=== PATIENT | female | born 1955 | race Caucasian/White ===

== ENCOUNTER 2019-08-05 07:36 | Inpatient (IN) ==
--- NOTE | 2019-06-16 16:24 | PAT Medication Instructions ---
Medication Instructions Date of Service June 16, 2019 Home Medications aspirin 325 mg PO QAM carvedilol [Coreg] 6.25 mg PO BID ibuprofen 1,200 mg PO Q6H PRN levothyroxine 75 mcg PO QAM losartan 100 mg PO QAM sertraline 50 mg PO QPM simvastatin 20 mg PO PM tramadol 50 mg PO TID PRN ASK your surgeon for instructions ibuprofen 1,200 mg PO Q6H PRN ASK your prescriber and surgeon aspirin 325 mg PO QAM DO NOT take the morning of surgery losartan 100 mg PO QAM Take morning of surgery With a small sip of water, OTHERWISE NOTHING TO EAT OR DRINK AFTER MIDNIGHT: carvedilol [Coreg] 6.25 mg PO BID levothyroxine 75 mcg PO QAM tramadol 50 mg PO TID PRN (if needed, may be taken up to four hours before surgery) Take evening before surgery carvedilol [Coreg] 6.25 mg PO BID sertraline 50 mg PO QPM simvastatin 20 mg PO PM tramadol 50 mg PO TID PRN (if needed) Other Notes If you have any questions please call us at [phone] or [phone] or [phone] or [phone]
--- NOTE | 2019-06-17 14:01 | Anesthesiology Consultation ---
Date of Service June 17, 2019 Assessment & Plan (1) Encounter for pre-operative examination: -Note to cardiology re: optimization and abn EKG -- cardio arranged clearance and is ordering stress test to be done prior to surgery. Chart Review Chart Review: Acceptable Risk for Surgery (pending cardiology clearance/stress test) and Patient seen in Pre Admission Testing Teaching & Discussion Instructed NPO after midnight before surgery, except medications with 15 cc of water. Medication instructions provided according to the PAT guidelines. History Surgery Operation Date: 08/05/19 07:45 Proposed Procedures p L1-S1 Decompression, T11 Pelvis Fusion with Iliac Bolts Spinal Cord Monitoring - Viet Cooper, DO Height/Weight Height: 5 ft 7 in Weight: 89.7 kg Allergies Allergy/AdvReac Type Severity Reaction Status Date / Time amoxicillin Allergy Unknown Hives Verified 06/09/19 08:56 Medications Home Medications Medication Instructions Recorded Confirmed Last Taken aspirin 325 mg PO QAM 06/09/19 06/09/19 Unknown carvedilol [Coreg] 6.25 mg PO BID 06/09/19 06/09/19 Unknown ibuprofen 1,200 mg PO Q6H PRN 06/09/19 06/09/19 Unknown levothyroxine 75 mcg PO QAM 06/09/19 06/09/19 Unknown losartan 100 mg PO QAM 06/09/19 06/09/19 Unknown sertraline 50 mg PO QPM 06/09/19 06/09/19 Unknown simvastatin 20 mg PO PM 06/09/19 06/09/19 Unknown tramadol 50 mg PO TID PRN 06/09/19 06/09/19 Unknown Past Medical History Medical History Arthritis CAD (coronary artery disease) h/o 3 cardiac caths. Stents placed ~'s, and ~2008/2009 Carotid artery stenosis 50-69% stenosis B/L per 11/19/18 duplex Carpal tunnel syndrome on both sides Hyperlipidemia Hypertension Hypothyroidism Spinal stenosis Exercise / Class Metabolic Activity III < 4 Walking/Shop/Light housework (Denies CP or SOB with 1 FOS but does not do/limited mobility 2/2 back pain/LE weakness) Past Family History Family History Aunt FHx: breast cancer Other FHx: heart disease Past Surgical History Surgical History H/O heart artery stent History of colonoscopy Hx of cardiac cath X3; LAST CATH 5 YR AGO [place]; STENTS DONE ABOUT 10 YR AGO. [facility] Hx of meniscectomy of right knee X2 Past Anesthesia History No Hx of Anesthesia Complications and No Family Hx of Anesthesia Complications History of PONV No Hx of PONV and No Hx of Motion Sickness Social History Smoking Status: Current every day smoker tobacco type: cigarettes Smoking cigarettes per day: Attempting to quit, smoking ~1 pack per month Do You Dip or Chew Tobacco: No Hx Alcohol Use: No Hx Substance Use: No Review of Systems Pt denies any recent chest pain, shortness of breath, palpitations, cough, fever or URI. Physical Exam Vital Signs BP: 111/60 P: 67bpm SPO2: 98% RA T: 98.6 F R: 16 ENMT Mouth: + dentures and + edentulous Thyromental Distance: > or= 3.5 Finger Breadths (4) Mallampati Class: II Neck + thick neck; neck extension not limited Respiratory normal respiratory effort Auscultation: lungs clear to auscultation bilaterally Cardiovascular Rate/Rhythm: regular rate and regular rhythm Heart Sounds: no murmur Vessels: + carotid bruit (R side) Extremities: no edema Testing Laboratory Results 06/17/19 14:11 06/17/19 14:11 PT 10.5 Seconds (9.0-12.0) 06/17/19 14:11 INR 1.0 (0.9-1.1) 06/17/19 14:11 APTT 28.8 Seconds (21.0-31.0) 06/17/19 14:11 Urine Color Dark Yellow 06/17/19 14:11 Urine Appearance Turbid (Clear) A 06/17/19 14:11 Urine pH 5.0 (4.5-7.5) 06/17/19 14:11 Ur Specific [place] 1.032 (1.000-1.030) H 06/17/19 14:11 Urine Protein Negative (Negative) 06/17/19 14:11 Urine Glucose (UA) Negative (Negative) 06/17/19 14:11 Urine Ketones Negative (Negative) 06/17/19 14:11 Urine Nitrite Negative (Negative) 06/17/19 14:11 Ur Leukocyte Esterase 1+ (Negative) H 06/17/19 14:11 Urine WBC (Auto) 5-10 /hpf (0-5) H 06/17/19 14:11 Urine RBC (Auto) 0-4 /hpf (0-4) 06/17/19 14:11 U Hyaline Cast (Auto) 5-10 /lpf (0-5) H 06/17/19 14:11 U Epithel Cells (Auto) >30 /lpf (0-5) H 06/17/19 14:11 Urine Bacteria (Auto) 1+ (Negative) H 06/17/19 14:11 Blood Type O Positive 06/17/19 14:11 Antibody Screen POSITIVE A 06/17/19 14:11 06/17/19 14:11 Urine Culture - Final Urine,Clean Catch More than three types of organisms present, all moderate counts mixed probable skin kendra. No further identifications or sensitivities to follow. *surgeon's office flagged re: +UA (culture is pending) Electrocardiogram Date: 06/17/19 Findings: + NSR @ (61) Nonspecific T wave abnormality. Chest X-Ray Date: 06/17/19 Findings: + NAD Other Testing Carotid Duplex 11/19/18 50-69% stenosis in B/L carotid arteries.
--- NOTE | 2019-06-17 14:34 | XRay Report ---
XR chest Pre-admission PA/Lat HISTORY: Preop. COMPARISON: None. FINDINGS: The lungs are clear. Cardiac silhouette is normal in size. No pleural effusions. No pneumot horax. S-shaped scoliosis of the thoracolumbar spine. IMPRESSION: No acute process. ACT 112: Negative or not required by law. Electronically signed by: Bryson Jj M.D. 06/17/2019 2:33 PM
[2019-06-17 15:57] LABS: Basophils # (auto) 0.01 K/uL (0-0.2); Basophils % (auto) 0.2 %; Eosinophils # (auto) 0.05 K/uL (0-0.5); Eosinophils % (auto) 0.9 %; Hematocrit (blood only) 40.3 % (37-47); Hemoglobin 13.5 g/dL (12.0-16.0); Immature Granulocytes # (auto) 0.01 K/uL (0.00-0.02); Immature Granulocytes % (auto) 0.2 %; Lymphocytes # (auto) 1.52 K/uL (1.2-3.4); Lymphocytes % (auto) 26.5 %; Mean Corpuscular Hemoglobin 31.3 pg (25-34); Mean Corpuscular Hgb Conc 33.5 g/dL (32-36); Mean Corpuscular Volume 93.3 fL (80-100); Mean Platelet Volume 9.8 fL (7.4-10.4); Monocytes # (auto) 0.45 K/uL (0.11-0.59); Monocytes % (auto) 7.9 %; Neutrophils # (auto) 3.69 K/uL (1.4-6.5); Neutrophils % (auto) 64.3 %; Platelet Count 214 K/uL (130-400); RDW Coefficient of Variation 13.1 % (11.5-14.5); RDW Standard Deviation 44.9 fL (36.4-46.3); Red Blood Count 4.32 M/uL (4.2-5.4); White Blood Count 5.73 K/uL (4.8-10.8)
[2019-06-17 15:59] LABS: Appearance Urine Turbid (Clear); Bacteria Urine Automated 1+ (Negative); Blood Urine Negative (Negative); Color Urine Dark Yellow; Epithelial Cell Urine Auto >30 /lpf (0-5); Glucose Urine UA Negative (Negative); Ketones Urine Negative (Negative); Leukocyte Esterase Urine 1+ (Negative); Nitrite Urine Negative (Negative); Protein Urine Negative (Negative); Specific Gravity Urine 1.032 (1.000-1.030); Urobilinogen Urine Negative (Negative)
[2019-06-17 16:05] LABS: Bilirubin Urine Negative (Negative); Ictotest Urine Negative (Negative)
[2019-06-17 16:11] LABS: Partial Thromboplastin Ratio 1.1; Partial Thromboplastin Time 28.8 Seconds (21.0-31.0); Prothrombin Time 10.5 Seconds (9.0-12.0)
[2019-06-17 16:12] LABS: RBC Urine Automated 0-4 /hpf (0-4)
[2019-06-17 16:13] LABS: Calcium Oxalate Crystals Urine Present (None Prsent)
--- NOTE | 2019-06-17 16:14 | Electrocardiogram Report ---
Test Reason : Blood Pressure : / mmHG Vent. Rate : 061 BPM Atrial Rate : 061 BPM P-R Int : 138 ms QRS Dur : 092 ms QT Int : 410 ms P-R-T Axes : 058 052 -18 degrees QTc Int : 412 ms Normal sinus rhythm Nonspecific T wave abnormality Abnormal ECG No previous ECGs available Confirmed by Diogenes John ([id number]) on 06/17/2019 4:14:24 PM Referred By: Viet Cooper Confirmed By:Diogenes John
[2019-06-17 16:22] LABS: BUN Creatinine Ratio 27.8 (10-20); Calcium 9.2 mg/dl (8.5-10.1); Creatinine Clr Calc Pharmacy 74.3 ml/min; Est GFR (African American) 80.5; Est GFR (Non-African American) 69.4; Potassium 4.1 mmol/L (3.5-5.1)
[~2019-08-05 07:36] MED LIST: ALBUMIN HUMAN 5% 12.5 GM/250 ML VIAL IV ONE; CEFAZOLIN 2000MG 2,000 MG/15 ML SYR IV SCH; CLINDAMYCIN 600 MG/54 ML BAG IV SCH; GABAPENTIN 600 MG DOSE PO SCH; LR 15ML/HR IV SCH
[2019-08-05] MEDS ORDERED: GLYCOPYRROLATE 0.2 MG/ML VIAL ONE (08:12)
[2019-08-05] MEDS ORDERED: MIDAZOLAM HCL 1 MG/ML 2ML VIAL ONE (08:12)
[2019-08-05] MEDS ORDERED: DEXAMETHASONE SOD INJ 4 MG/ML VIAL ONE (08:12)
[2019-08-05] MEDS ORDERED: LIDOCAINE HCL 2% 2 ML VIAL/AMP(20MG/ML) INFIL ONE ×2 (08:12→08:28)
[2019-08-05] MEDS ORDERED: NEOSTIGMINE METHYLSULFATE 1 MG/ML 10ML VIAL ONE (08:12)
[2019-08-05] MEDS ORDERED: PROPOFOL IV EMULSION 10 MG/ML 20 ML VIAL IV ONE (08:12)
[2019-08-05] MEDS ORDERED: fentaNYL citrate 100 MCG/2 ML VIAL ONE ×2 (08:12)
[2019-08-05] MEDS ORDERED: ONDANSETRON INJ 2 MG/ML 2 ML VIAL ONE ×2 (08:12→12:55)
[2019-08-05] MEDS ORDERED: ONDANSETRON INJ 2 MG/ML 2 ML VIAL IV PRN ×2 (08:45→15:00)
[2019-08-05] MEDS ORDERED: fentaNYL citrate 100 MCG/2 ML VIAL IV PRN (08:45)
[2019-08-05] MEDS ORDERED: ePHEDrine sulfate 50 MG/ML AMP IV PRN (08:45)
[2019-08-05] MEDS ORDERED: ATROPINE SULFATE 0.1 MG/ML 10ML SYR IV PRN (08:45)
[2019-08-05] MEDS ORDERED: HYDROmorphone INJ 1 MG/ML SYRINGE IV PRN ×2 (08:45→15:00)
--- NOTE | 2019-08-05 09:28 | History & Physical Bridge Note ---
Date of Service August 05, 2019 History & Physical Bridge Note I have examined the patient, reviewed the History & Physical and in the interval since the performance of the History & Physical I have noted the following changes of clinical significance: no changes noted
--- NOTE | 2019-08-05 09:29 | History & Physical Report ---
Date of Service August 05, 2019 Assessment & Plan (1) Neurogenic claudication due to lumbar spinal stenosis: L1-S1 decompression, T11 to pelvis fusion with iliac bolts Present on Admission?: Yes History of Present Illness Chief Complaint: Back and leg pain Primary Care Provider: Ko Hunter This is a 63-year-old female presents with chronic persistent back and leg pain. From extensive course of nonoperative care she is here for surgical intervention. Allergies Allergy/AdvReac Type Severity Reaction Status Date / Time amoxicillin Allergy Unknown Hives Verified 08/05/19 07:55 Home Medications Home Medications Medication Instructions Recorded Confirmed Type aspirin 325 mg PO QAM 06/09/19 08/05/19 History carvedilol [Coreg] 6.25 mg PO BID 06/09/19 08/05/19 History ibuprofen 1,200 mg PO Q6H PRN 06/09/19 08/05/19 History levothyroxine 75 mcg PO QAM 06/09/19 08/05/19 History losartan 100 mg PO QAM 06/09/19 08/05/19 History sertraline 50 mg PO QPM 06/09/19 08/05/19 History simvastatin 20 mg PO PM 06/09/19 08/05/19 History tramadol 50 mg PO TID PRN 06/09/19 08/05/19 History Past Med/Surg History Medical History Arthritis CAD (coronary artery disease) h/o 3 cardiac caths. Stents placed ~'s, and ~2008/2009 Carotid artery stenosis 50-69% stenosis B/L per 11/19/18 duplex Carpal tunnel syndrome on both sides Hyperlipidemia Hypertension Hypothyroidism Spinal stenosis Surgical History H/O heart artery stent History of colonoscopy Hx of cardiac cath X3; LAST CATH 5 YR AGO [place]; STENTS DONE ABOUT 10 YR AGO. [facility] Hx of meniscectomy of right knee X2 Family History Aunt FHx: breast cancer Other FHx: heart disease Social History Preferred Language: Irish Communication Ability: Effective Beliefs That Will Affect Care: None Current Living Situation: Significant Other Feels Safe at Home: Yes Safety Concerns: Feels Safe At This Time Smoking Status: Current every day smoker Tobacco Type: cigarettes ; Cigarettes Per Day: Attempting to quit, smoking ~1 pack per month ; Do You Dip or Chew Tobacco: No ; Second Hand Exposure: No ; Hx Alcohol Use: No Hx Substance Use: No Physical Exam Physical Exam: Patient is alert and oriented neurologically intact. Results & Data Vital Signs (Past 12 Hours) Vital Signs Temp Pulse Resp BP Pulse Ox 08/05/19 08:02 36.9 C 54 L 18 168/75 H 98
[2019-08-05] MEDS ORDERED: BACITRACIN INJ 50,000 UNIT VIAL ONE (09:40)
[2019-08-05] MEDS ORDERED: BUPIVACAINE/EPINEPHRINE 0.5% MPF 1:200,000 10 ML VIAL ONE (09:40)
[2019-08-05] MEDS ORDERED: THROMBIN FOR SOLN 20000 UNIT KIT ONE (10:00)
[2019-08-05] MEDS ORDERED: ATROPINE SULFATE 1MG/2.5ML SYR ONE (10:37)
[2019-08-05] MEDS ORDERED: ROCURONIUM BROMIDE 10 MG/ML 5 ML VIAL ONE ×3 (10:37→14:20)
[2019-08-05] MEDS ORDERED: FLOSEAL HEMOSTATIC MATRIX 10ML TOP ONE (12:38)
--- NOTE | 2019-08-05 12:44 | Operative Report ---
Post Operative Report Pre & Post Diagnosis Operation Date: 08/05/19 09:35 Pre-Op Diagnosis: Neurogenic claudication due to lumbar spinal stenosis Post-Op Diagnosis: Neurogenic claudication due to lumbar spinal stenosis I identified the patient and participated in the time-out.: Yes Procedure Operation Date: 08/05/19 09:35 Actual Procedures #1 lumbar decompression with bilateral medial facetectomies and foraminotomies L1-2, L2-3, L3-4. #2 posterior spinal fusion T11-S1. #3 placement posterior segmental instrumentation using medicrea rods and screws T12-S1 this included a cross-link. #4 interbody fusion L3-4 per #5 placed a peek cage 10 x 22 mm at L3-4 per #6 placement of locally harvested morselized autograft in the posterior lateral gutters. #7 placement infuse collagen sponge, master graft in the posterior lateral gutters and ostial amp and interbody space. Surgeon Viet Cooper, [facility] Author Laura Hameed Estimated Blood Loss 650 Findings Consistent with Post-Op Diagnosis Specimens None Indications This was a 63-year-old female presents above-mentioned diagnosis after failing extensive course of nonoperative care is here for surgical invention. Description of Procedure Patient was met with identified informed consent obtained. She was then taken to the operative suite underwent intubation placed in a prone position on the Yon table on top of the Ramo frame. All bony prominences well-padded eyes inspected to ensure no external pressure placed upon the. This point the thoracolumbar spine was prepped and draped in a sterile fashion. Sharp dissection with assistance of Bovie cautery was performed down to and exposing the lamina and transverse processes of T11-T12 L1-L2 L3-L4-L5 and the sacral ala bilaterally. From caudal cephalad fashion I then performed a complete laminectomy of L3 L2 partial laminectomy of L1 including bilateral medial facetectomies and foraminotomies addressing particularly severe spinal stenosis and foraminal disease at L3-4 and L4-5 on the right. After this complete pedicle screws were placed in T12 L1-L2 L3-L4-L5 and the S1 levels bilaterally. By way of a transforaminal approach on the right a complete discectomy of L3-4 was performed endplates curetted to subcortical bleeding bone and a 10 x 22 mm peek cage filled with osteo-amp bone graft tapped in position. Proper sized rods were then contoured and locked in position bilaterally. This included a cross-link. The transverse processes of T11-T12 L1-L2 L3-L4-L5 and sacral ala were then burred to subcortical bleeding bone. Infuse collagen sponge master graft local autograft was then placed in the posterior lateral gutters. 15 round MATTHEW drain inserted. The incision was then closed with 1 Vicryl in the fascia 2-0 Vicryl subcutaneously and 4 Monocryl for final skin closure. Steri- Strip sterile dressings placed. Patient will continue PACU stable condition. Please note Laura Hameed present at the entire procedure involved the patient positioning complex portions of the surgery and final skin closure. Lastly spinal cord monitoring was utilized that the procedure no changes noted. I attest to the content of the Intraoperative Record and any orders documented therein. Any exceptions are noted below.
--- NOTE | 2019-08-05 12:58 | Fluoroscopy Report ---
FL lumbar spine 2-3V CLINICAL HISTORY: L1-S1 DECOMPRESSION/[id number] W/ILIAC BOLTS COMPARISON STUDY: None. FLUOROSCOPY TIME: 51 seconds. FINDINGS: 4 fluoroscopic spot images of the lumbar spine were submitted. There is posterior decompres tommy fusion from L1 through S1 with pedicle screws and rods. The hardware appears intact. IMPRESSION: Fluoroscopy provided for L1-S1 posterior decompression and fusion ACT 112: Negative or not required by law. Electronically signed by: Bryson Jj M.D. 08/05/2019 12:56 PM
[2019-08-05 13:33] LABS: Hematocrit (blood only) 33.8 % (37-47); Hemoglobin 11.3 g/dL (12.0-16.0)
--- NOTE | 2019-08-05 14:03 | Anesthesiology Progress Note ---
Date of Service August 05, 2019 Anesthesia Post Procedure Vital Signs Vital Signs: Temp Pulse Pulse Resp BP BP Pulse Ox 08/05/19 13:50 59 L 18 128/68 95 08/05/19 13:40 58 L 21 125/62 96 08/05/19 13:30 56 L 22 119/58 L 98 08/05/19 13:20 61 21 131/56 L 98 08/05/19 13:13 98.8 F 65 21 150/66 H 98 08/05/19 08:02 98.4 F 54 L 18 168/75 H 98 Transfer of Care Handoff Completed per policy Notes Mental Status: alert / awake / arousable and participated in evaluation Patient Amnestic to Procedure: Yes Nausea / Vomiting: adequately controlled Pain: adequately controlled Airway Patency, RR, SpO2: stable & adequate BP & HR: stable & adequate Hydration State: stable & adequate Anesthetic Complications: no major complications apparent and Pt Satisfied with anesthetic care
[2019-08-05] MEDS ORDERED: ALUMINUM/MAGNESIUM SUSP 30 ML UDC PO PRN (15:00)
[2019-08-05] MEDS ORDERED: LORazepam 0.5 MG/1 ML VIAL IV PRN (15:00)
[2019-08-05] MEDS ORDERED: MAGNESIUM HYDROXIDE SUSP 30 ML UDC PO PRN (15:00)
[2019-08-05] MEDS ORDERED: DO NOT ADMINISTER PNEUMOCOCCAL VACCINE PRN (15:00)
[2019-08-05] MEDS ORDERED: LORazepam 0.5 MG TAB PO PRN (15:00)
[2019-08-05] MEDS ORDERED: NALOXONE HCL 0.4 MG/1 ML VIAL/CARP IV PRN (15:00)
[2019-08-05] MEDS ORDERED: ACETAMINOPHEN 1,000 MG/100 ML VIAL IV PRN (15:00)
[2019-08-05] MEDS ORDERED: HYDROmorphone INJ 0.5 MG/0.5 ML SYR IV PRN (15:00)
[2019-08-05] MEDS ORDERED: PROMETHAZINE HCL 12.5 MG in SODIUM CHLORIDE 0.9% 50 ML IV PRN (15:00)
[2019-08-05] MEDS ORDERED: ONDANSETRON 4 MG OD TAB PO PRN (15:00)
[2019-08-05] MEDS ORDERED: DO NOT ADMINISTER FLU VACCINE PRN (15:00)
[2019-08-05] MEDS ORDERED: ACETAMINOPHEN 500 MG TAB PO PRN (15:00)
[2019-08-05] MEDS ORDERED: SOD PHOSPHATE/SOD BIPHOSPHATE ENEMA 132 ML BTL PR PRN (15:00)
[2019-08-05] MEDS ORDERED: TRAMADOL HCL 50 MG TABLET PO PRN (15:00)
[2019-08-05] MEDS ORDERED: bisacodyL 10 MG SUPP PR PRN (15:00)
[2019-08-05] MEDS ORDERED: METOCLOPRAMIDE HCL INJ 5 MG/ML 2 ML VIAL IV PRN (15:00)
[2019-08-05] MEDS ORDERED: FAMOTIDINE 20 MG TAB PO PRN (15:00)
--- NOTE | 2019-08-05 16:02 | Hospitalist Consultation ---
Date of Consultation August 05, 2019 Assessment & Plan (1) Neurogenic claudication due to lumbar spinal stenosis: - POD#0 L1-S1 decompression, [id number] fusion with iliac bolts - activity and wound care orders as per ortho - pain control with bowel regimen - PT/OT - monitor H/H for acute blood loss anemia and transfuse blood products PRN - EBL 650 cc (2) Hypertension: -BP controlled, continue losartan and carvedilol (3) CAD (coronary artery disease): -Appears stable, no reports of chest pain -Continue aspirin, statin, beta-cinthya (4) Hypothyroidism: -Continue levothyroxine (5) DVT prophylaxis: -Teds/SCDs as per spine orthopedics Thank you for this consultation. We will follow the patient with you during their hospital stay. You [facility]01 via pager @ [phone]. Supervising Physician Co-Signing Physician Notes HISTORY: Record reviewed. Patient interviewed and examined in her room. Care coordinated with MARLEN James. Please refer to her documentation for complete history. Briefly, 63-year-old female with history of coronary artery disease, hypertension, and other problems who underwent lumbar decompression/fusion earlier today. Having some postoperative pain. Otherwise, doing well. No chest pain, cough, shortness of breath, nausea, vomiting. EXAM: General- no distress Lungs- clear to auscultation; no respiratory distress Cardiovascular- RRR; no murmur; no gallop; no JVD; no pretibial edema Abdomen- + bowel sounds, soft, nontender Extremities- no cyanosis; no calf tenderness; TEDS and SCDs applied. Neuro- alert, oriented Skin- warm & dry DATA: Hemoglobin 11.3 this afternoon. ASSESSMENT AND PLAN: Doing well postoperatively. Cardiac status stable. Resume aspirin when okay from surgical perspective. Continue carvedilol, losartan, simvastatin. Please refer to PRUDENCIO Bull's documentation for discussion of other issues. Thank you for this consultation. We will follow the patient with you during their hospital stay. My cell # is [phone]. You can reach a member of the [facility] Team 01/01 via pager @ [phone]. History of Present Illness Reason for Consultation: Postop medical management Requesting Physician: Dr. Cooper Attending Physician: Dr. Henry History of Present Illness 63-year-old female who is status post L1-S1 decompression and P12-[id number] fusion with iliac bolting. Postoperatively, the patient is doing well. She reports her pain is well controlled. Denies numbness and tingling to lower extremities. No chest pain or shortness of breath. Denies lightheadedness and dizziness. No abdominal pain or nausea. Rubin catheter is in place draining clear yellow urine. Allergies Allergy/AdvReac Type Severity Reaction Status Date / Time amoxicillin Allergy Unknown Hives Verified 08/05/19 07:55 Home Medications Home Medications Medication Instructions Recorded Confirmed Type aspirin 325 mg PO QAM 06/09/19 08/05/19 History carvedilol [Coreg] 6.25 mg PO BID 06/09/19 08/05/19 History ibuprofen 1,200 mg PO Q6H PRN 06/09/19 08/05/19 History levothyroxine 75 mcg PO QAM 06/09/19 08/05/19 History losartan 100 mg PO QAM 06/09/19 08/05/19 History sertraline 50 mg PO QPM 06/09/19 08/05/19 History simvastatin 20 mg PO PM 06/09/19 08/05/19 History tramadol 50 mg PO TID PRN 06/09/19 08/05/19 History Patient History Medical History Arthritis CAD (coronary artery disease) h/o 3 cardiac caths. Stents placed ~'s, and ~2008/2009 Carotid artery stenosis 50-69% stenosis B/L per 11/19/18 duplex Carpal tunnel syndrome on both sides Hyperlipidemia Hypertension Hypothyroidism Spinal stenosis Surgical History H/O heart artery stent History of colonoscopy Hx of cardiac cath X3; LAST CATH 5 YR AGO [facility]; STENTS DONE ABOUT 10 YR AGO. [facility] Hx of meniscectomy of right knee X2 Family History Aunt FHx: breast cancer Denies family history of Diabetes Social History Preferred Language: Italian Communication Ability: Effective Beliefs That Will Affect Care: None Current Living Situation: Significant Other Feels Safe at Home: Yes Safety Concerns: Feels Safe At This Time Smoking Status: Current every day smoker Tobacco Type: cigarettes ; Cigarettes Per Day: Attempting to quit, smoking ~1 pack per month ; Do You Dip or Chew Tobacco: No ; Second Hand Exposure: No ; Hx Alcohol Use: No Hx Substance Use: No Review of Systems Review of Systems: ROS per HPI, all other systems reviewed and negative Physical Exam Constitutional: WD/WN, vitals as above Eyes: PERRL, conjunctivae normal, anicteric sclerae ENMT: external ear and nose normal, oropharynx normal Respiratory: normal respiratory effort, lungs clear to auscultation Cardiovascular: Rate/Rhythm: regular rate and regular rhythm Vessels: normal peripheral pulses Extremities: no edema Gastrointestinal (Abdomen): normal bowel sounds, soft, nontender, no hepatosplenomegaly Musculoskeletal: no cyanosis or clubbing, extremities motor strength 5/5 S/p back surgery, pedal pushes and pulls strong bilaterally, drain in place draining bloody drainage Skin: no rashes, warm and dry Neurologic: PERRL, EOMI, accommodation nl, no face palsy, no dysarthria Psychiatric: A+Ox3, euthymic affect Genitourinary: Rubin in place draining clear yellow urine Results & Data ([facility]) Vital Signs (Past 12 Hours) Vital Signs Temp Pulse Pulse Pulse Resp BP BP 08/05/19 15:45 36.7 C 62 18 121/75 08/05/19 15:05 60 16 137/84 08/05/19 14:35 36.9 C 68 16 111/71 08/05/19 14:20 64 20 104/59 L 08/05/19 14:10 36.3 C L 57 L 21 102/57 L 08/05/19 14:00 36.3 C L 63 19 118/69 08/05/19 13:50 59 L 18 128/68 08/05/19 13:40 58 L 21 125/62 08/05/19 13:30 56 L 22 119/58 L 08/05/19 13:20 61 21 131/56 L 08/05/19 13:13 37.1 C 65 21 150/66 H 08/05/19 08:02 36.9 C 54 L 18 168/75 H Pulse Ox 08/05/19 15:45 99 08/05/19 15:05 98 08/05/19 14:35 96 08/05/19 14:20 95 08/05/19 14:10 94 08/05/19 14:00 94 08/05/19 13:50 95 08/05/19 13:40 96 08/05/19 13:30 98 08/05/19 13:20 98 08/05/19 13:13 98 08/05/19 08:02 98
[2019-08-05] MEDS: KETOROLAC TROMETHAMINE 15 MG/ML VIAL IV SCH ×2 (16:24→22:13)
[2019-08-05] MEDS: SODIUM CHLORIDE 0.9% 1000ML 1,000 ML IV SCH (16:24)
[2019-08-05] MEDS: CEFAZOLIN 2000MG 2,000 MG/15 ML SYR IV SCH (18:04)
[2019-08-05] MEDS: DOCUSATE SODIUM/SENNA 50/8.6MG TAB PO SCH (22:12)
[2019-08-05] MEDS: SERTRALINE HCL 50 MG TABLET PO SCH (22:12)
[2019-08-05] MEDS: carvediloL 6.25 MG TAB PO SCH (22:12)
[2019-08-05] MEDS: SIMVASTATIN 20 MG TAB PO SCH (22:12)
[2019-08-05] MEDS: OXYCODONE HCL IR 5 MG TAB (IMMEDIATE RELEASE) PO PRN (22:12)
[2019-08-05] MEDS ORDERED: NURSING DECISION MEDICATION PRN (23:42)
[2019-08-06] MEDS ORDERED: COUGH DROP (SUGAR FREE) LOZ 24 LOZ/1 BOX BUCCAL PRN (01:55)
[2019-08-06] MEDS: CEFAZOLIN 2000MG 2,000 MG/15 ML SYR IV SCH (02:15)
[2019-08-06] MEDS: SODIUM CHLORIDE 0.9% 1000ML 1,000 ML IV SCH (02:15)
[2019-08-06] MEDS: OXYCODONE HCL IR 5 MG TAB (IMMEDIATE RELEASE) PO PRN ×4 (03:35→19:48)
[2019-08-06] MEDS: KETOROLAC TROMETHAMINE 15 MG/ML VIAL IV SCH ×2 (04:23→10:34)
[2019-08-06] MEDS: LEVOTHYROXINE SODIUM 75 MCG TABLET PO SCH (05:53)
[2019-08-06] MEDS: POLYETHYLENE (MIRALAX) 17 GM PACK PO SCH ×3 (05:53→18:22)
[2019-08-06 05:55] LABS: Eosinophils # (auto) 0.01 K/uL (0-0.5); Eosinophils % (auto) 0.1 %; Hematocrit (blood only) 27.2 % (37-47); Hemoglobin 9.2 g/dL (12.0-16.0); Immature Granulocytes # (auto) 0.03 K/uL (0.00-0.02); Immature Granulocytes % (auto) 0.3 %; Lymphocytes # (auto) 1.14 K/uL (1.2-3.4); Lymphocytes % (auto) 10.8 %; Mean Corpuscular Hemoglobin 31.1 pg (25-34); Mean Corpuscular Hgb Conc 33.8 g/dL (32-36); Mean Corpuscular Volume 91.9 fL (80-100); Mean Platelet Volume 8.8 fL (7.4-10.4); Monocytes # (auto) 0.73 K/uL (0.11-0.59); Monocytes % (auto) 6.9 %; Neutrophils # (auto) 8.66 K/uL (1.4-6.5); Neutrophils % (auto) 81.9 %; Platelet Count 224 K/uL (130-400); RDW Coefficient of Variation 13.3 % (11.5-14.5); RDW Standard Deviation 44.6 fL (36.4-46.3); Red Blood Count 2.96 M/uL (4.2-5.4); White Blood Count 10.57 K/uL (4.8-10.8)
[2019-08-06 06:27] LABS: BUN Creatinine Ratio 18.5 (10-20); Calcium 8.1 mg/dl (8.5-10.1); Creatinine Clr Calc Pharmacy 84.4 ml/min; Est GFR (African American) 93.1; Est GFR (Non-African American) 80.3; Potassium 4.2 mmol/L (3.5-5.1)
--- NOTE | 2019-08-06 08:00 | Anesthesiology Progress Note ---
Date of Service August 06, 2019 Anesthesia Post Procedure Vital Signs Vital Signs: Temp Pulse Pulse Pulse Resp BP BP 08/06/19 03:27 36.9 C 77 16 113/66 08/05/19 22:54 36.9 C 75 16 112/62 08/05/19 22:11 70 125/80 08/05/19 21:56 37.1 C 73 18 137/82 08/05/19 19:35 36.8 C 79 18 102/66 08/05/19 17:59 111/64 08/05/19 17:55 37.4 C 76 18 82/54 L 08/05/19 16:25 36.9 C 62 18 134/85 08/05/19 15:45 36.7 C 62 18 121/75 08/05/19 15:05 60 16 137/84 08/05/19 14:35 36.9 C 68 16 111/71 08/05/19 14:20 64 20 104/59 L 08/05/19 14:10 36.3 C L 57 L 21 102/57 L 08/05/19 14:00 36.3 C L 63 19 118/69 08/05/19 13:50 59 L 18 128/68 08/05/19 13:40 58 L 21 125/62 08/05/19 13:30 56 L 22 119/58 L 08/05/19 13:20 61 21 131/56 L 08/05/19 13:13 37.1 C 65 21 150/66 H 08/05/19 08:02 36.9 C 54 L 18 168/75 H Pulse Ox 08/06/19 03:27 93 08/05/19 22:54 96 08/05/19 22:11 08/05/19 21:56 95 08/05/19 19:35 92 08/05/19 17:59 08/05/19 17:55 92 08/05/19 16:25 100 08/05/19 15:45 99 08/05/19 15:05 98 08/05/19 14:35 96 08/05/19 14:20 95 08/05/19 14:10 94 08/05/19 14:00 94 08/05/19 13:50 95 08/05/19 13:40 96 08/05/19 13:30 98 08/05/19 13:20 98 08/05/19 13:13 98 08/05/19 08:02 98 Pain Intensity Back: Pain Intensity: 0 Notes Mental Status: alert / awake / arousable and participated in evaluation Patient Amnestic to Procedure: Yes Nausea / Vomiting: adequately controlled Pain: adequately controlled Airway Patency, RR, SpO2: stable & adequate BP & HR: stable & adequate Hydration State: stable & adequate Anesthetic Complications: no major complications apparent and Pt Satisfied with anesthetic care
[2019-08-06] MEDS: carvediloL 6.25 MG TAB PO SCH ×2 (09:00→20:56)
[2019-08-06] MEDS: LOSARTAN POTASSIUM 50 MG TAB PO SCH (09:00)
[2019-08-06] MEDS: ASPIRIN 325 MG ECTAB PO SCH (09:00)
--- NOTE | 2019-08-06 09:15 | Hospitalist Progress Note ---
Date of Service August 06, 2019 Assessment & Plan (1) Neurogenic claudication due to lumbar spinal stenosis: - POD#1 L1-S1 decompression, [id number] fusion with iliac bolts - activity and wound care orders as per ortho - pain control with bowel regimen - PT/OT - monitor H/H for acute blood loss anemia and transfuse blood products PRN - EBL 650 cc; drain output 490 cc to date (2) Acute blood loss as cause of postoperative anemia: -pre op hgb 13.5 -> 11.3 -> 9.2 -stable no need for PRBC transfusion at this time (3) Hypertension: -BP controlled, continue losartan and carvedilol (4) CAD (coronary artery disease): -Appears stable, no reports of chest pain -Continue aspirin (ok by ortho), statin, beta-cinthya (5) Hypothyroidism: -Continue levothyroxine (6) DVT prophylaxis: -Teds/SCDs as per spine orthopedics Admission and Anticipated Discharge Date Admission Date: August 05, 2019 Supervising Physician Co-Signing Physician Notes Pt is seen and examined by me, care coordinated with MARLEN James. Pt is a 63 y/o F w/ above mentioned medical hx, who is POD#1 L1-S1 decompression, [id number] fusion with iliac bolts. Currently pt is complaining about some back pain but she is able to stand up and ambulate w/ walker. Family at he bedside. Pt denies any fever, chills, chest pain, dizziness, shortness of breath, abd. pain, nausea or vomiting. Lungs are clear to auscultation, heart sounds are regular, abdomen soft, obese, nontender, w/ posit. bowel sounds. Moves all extremities spontaneously, ambulates w/ walker. Skin is warm and dry, well perfused. MATTHEW w/ serosang. fluid. Labs significant for post op/ blood loss anemia. Will cont. to monitor. Pt is hemodynamically stable and doing well overall. Pls contact us with any questions or concerns. Karis Salmeron MD Subjective Patient seen and examined. Sitting up in the chair. Reports she is feeling well. Pain is well controlled. No numbness or tingling to the LE. Denies chest pain and shortness of breath. No lightheadedness or dizziness. Denies abdominal pain and nausea. No BM or flatus yet. Physical Exam Constitutional: no acute distress sitting up in the chair Respiratory: normal respiratory effort, lungs clear to auscultation Cardiovascular: Rate/Rhythm: regular rate and regular rhythm Vessels: normal peripheral pulses Extremities: no edema Musculoskeletal: s/p back surgery, dressing dry and intact, drain in place draining bloody drainage, strength strong and equal BLLE Psychiatric: Orientation: alert and oriented x 3 Results & Data ([facility]) Vital Signs (Past 12 Hours) Vital Signs Temp Pulse Pulse Resp BP Pulse Ox 08/06/19 07:45 36.8 C 65 14 131/66 95 08/06/19 03:27 36.9 C 77 16 113/66 93 08/05/19 22:54 36.9 C 75 16 112/62 96 08/05/19 22:11 70 125/80 08/05/19 21:56 37.1 C 73 18 137/82 95 Laboratory Results Short CBC 08/05/19 08/06/19 Range/Units 13:23 05:37 WBC 10.57 (4.8-10.8) K/uL Hgb 11.3 L 9.2 L (12.0-16.0) g/dL Hct 33.8 L 27.2 L (37-47) % Plt Count 224 (130-400) K/uL BMP 08/06/19 05:37 Sodium 139 Potassium 4.2 Chloride 111 H Carbon Dioxide 25 BUN 14 Creatinine 0.78 Glucose 118 H Calcium 8.1 L
--- NOTE | 2019-08-06 12:59 | Orthopedic Progress Note ---
Date of Service August 06, 2019 Assessment & Plan (1) Neurogenic claudication due to lumbar spinal stenosis: At this time we will continue physical therapy monitor her MATTHEW output anticipate discharge home in the next few days. Present on Admission?: Yes Admission and Anticipated Discharge Date Admission Date: August 05, 2019 Subjective Back pain controlled leg symptoms improved. Physical Exam Physical Exam: Patient is good strength testing appears comfortable. Results & Data ([facility]) Vital Signs (Past 12 Hours) Vital Signs Temp Pulse Pulse Resp BP Pulse Ox 08/06/19 11:53 36.8 C 66 16 91/57 L 93 08/06/19 07:45 36.8 C 65 14 131/66 95 08/06/19 03:27 36.9 C 77 16 113/66 93
[2019-08-06] MEDS: SIMVASTATIN 20 MG TAB PO SCH (20:56)
[2019-08-06] MEDS: DOCUSATE SODIUM/SENNA 50/8.6MG TAB PO SCH (20:56)
[2019-08-06] MEDS: SERTRALINE HCL 50 MG TABLET PO SCH (20:56)
[2019-08-07] MEDS: POLYETHYLENE (MIRALAX) 17 GM PACK PO SCH (00:08)
[2019-08-07] MEDS: OXYCODONE HCL IR 5 MG TAB (IMMEDIATE RELEASE) PO PRN ×4 (01:53→20:10)
[2019-08-07] MEDS: LEVOTHYROXINE SODIUM 75 MCG TABLET PO SCH (05:27)
[2019-08-07 05:55] LABS: Hematocrit (blood only) 26.2 % (37-47); Hemoglobin 8.7 g/dL (12.0-16.0)
[2019-08-07 06:26] LABS: BUN Creatinine Ratio 23.6 (10-20); Creatinine Clr Calc Pharmacy 86.7 ml/min; Est GFR (African American) 96.1; Est GFR (Non-African American) 82.9
[2019-08-07] MEDS: carvediloL 6.25 MG TAB PO SCH ×2 (08:50→20:10)
[2019-08-07] MEDS: LOSARTAN POTASSIUM 50 MG TAB PO SCH (08:50)
[2019-08-07] MEDS: ASPIRIN 325 MG ECTAB PO SCH (08:50)
--- NOTE | 2019-08-07 10:13 | Hospitalist Progress Note ---
Date of Service August 07, 2019 Assessment & Plan (1) Neurogenic claudication due to lumbar spinal stenosis: - POD#2 L1-S1 decompression, [id number] fusion with iliac bolts - activity and wound care orders as per ortho - pain control with bowel regimen - PT/OT - monitor H/H for acute blood loss anemia and transfuse blood products PRN - EBL 650 cc; drain output 750 cc to date (2) Acute blood loss as cause of postoperative anemia: -pre op hgb 13.5 -> 11.3 -> 9.2 -> 8.7 -Patient asymptomatic -BP borderline low this a.m., likely due to recent administration of pain medications -Recheck H&H later this afternoon (3) Hypertension: -BP borderline low this am, likely secondary to pain medications -We will hold a.m. dose of losartan, continue carvedilol (4) CAD (coronary artery disease): -Appears stable, no reports of chest pain -Continue aspirin (ok by ortho), statin, beta-cinthya (5) Hypothyroidism: -Continue levothyroxine (6) DVT prophylaxis: -Teds/SCDs as per spine orthopedics Admission and Anticipated Discharge Date Admission Date: August 05, 2019 Supervising Physician Co-Signing Physician Notes Pt is seen and examined by me, care coordinated with MARLEN James. Pt is a 63 y/o F w/ above mentioned medical hx, who is POD#2 L1-S1 decompression, [id number] fusion with iliac bolts. Continues to have some back pain/discomfort however seems controlled. She is able to stand up and ambulate w/walker. Pt denies any fever, chills, chest pain, dizziness, shortness of breath, abd. pain, nausea or vomiting. She is passing flatus, had small BM, but says she feels constipated. Lungs are clear to auscultation, heart sounds are regular, abdomen soft, obese, nontender, w/ posit. bowel sounds. Moves all extremities spontaneously, ambulates w/walker. Skin is warm and dry, well perfused. MATTHEW w/ serosang. fluid. Labs significant for post op/ blood loss anemia, appears stable. Will cont. to monitor. Pt is hemodynamically stable (low BP this AM but resolved shortly after) and doing well overall. Cont. to monitor BP. Pls contact us with any questions or concerns. Karis Salmeron MD Subjective Patient seen and examined. Sitting up in the chair, reports she is feeling well. Pain is currently well controlled with pain medication regimen. Denies chest pain and shortness of breath. No lightheadedness or dizziness. Urinating and having bowel movements without difficulty. Physical Exam Constitutional: no acute distress Sitting up in the chair Respiratory: normal respiratory effort, lungs clear to auscultation Cardiovascular: Rate/Rhythm: regular rate and regular rhythm Vessels: normal peripheral pulses Extremities: no edema Musculoskeletal: S/p back surgery, drain in place draining a small amount of serosanguineous drainage, dressing dry and intact, pedal pushes and pulls strong bilaterally Psychiatric: A+Ox3, euthymic affect Results & Data ([facility]) Vital Signs (Past 12 Hours) Vital Signs Temp Pulse Resp BP Pulse Ox 08/07/19 07:39 37.1 C 78 18 96/59 L 91 08/06/19 23:33 37.8 C H 79 24 128/66 90 Laboratory Results Short CBC 08/07/19 Range/Units 05:19 Hgb 8.7 L (12.0-16.0) g/dL Hct 26.2 L (37-47) % BMP 08/07/19 05:19 Sodium 139 Potassium 4.0 Chloride 110 H Carbon Dioxide 25 BUN 18 Creatinine 0.76 Glucose 100 H Calcium 8.0 L
[2019-08-07] MEDS: DEXAMETHASONE SOD PHOSPHATE 8 MG in SYRINGE 0 ML IV ONE ×2 (11:10→12:06)
[2019-08-07] MEDS ORDERED: POLYETHYLENE (MIRALAX) 17 GM PACK PO ONE (13:15)
--- NOTE | 2019-08-07 13:57 | Orthopedic Progress Note ---
Date of Service August 07, 2019 Assessment & Plan (1) Neurogenic claudication due to lumbar spinal stenosis: This time we will continue physical therapy monitor MATTHEW output anticipate discharge in tomorrow Present on Admission?: Yes Admission and Anticipated Discharge Date Admission Date: August 05, 2019 Subjective Back pain controlled leg pain improved Physical Exam Physical Exam: Patient is neurologically intact. Results & Data ([facility]) Vital Signs (Past 12 Hours) Vital Signs Temp Pulse Resp BP Pulse Ox 08/07/19 07:39 37.1 C 78 18 96/59 L 91
[2019-08-07 14:44] LABS: Hematocrit (blood only) 26.4 % (37-47); Hemoglobin 8.9 g/dL (12.0-16.0)
[2019-08-07] MEDS: SERTRALINE HCL 50 MG TABLET PO SCH (20:10)
[2019-08-07] MEDS: SIMVASTATIN 20 MG TAB PO SCH (20:10)
[2019-08-07] MEDS: DOCUSATE SODIUM/SENNA 50/8.6MG TAB PO SCH (20:10)
[2019-08-08] MEDS: LEVOTHYROXINE SODIUM 75 MCG TABLET PO SCH (06:23)
[2019-08-08] MEDS: OXYCODONE HCL IR 5 MG TAB (IMMEDIATE RELEASE) PO PRN (06:25)
[2019-08-08] MEDS: carvediloL 6.25 MG TAB PO SCH (08:39)
[2019-08-08] MEDS: ASPIRIN 325 MG ECTAB PO SCH (08:39)
--- NOTE | 2019-08-08 10:26 | Discharge Summary ---
Date of Service August 08, 2019 Admission HPI Per Admitting Provider This is a 63-year-old female presents with chronic persistent back and leg pain. From extensive course of nonoperative care she is here for surgical intervention. Principal Diagnosis Lumbar spinal stenosis with neurogenic claudication Discharge Data Allergies Allergy/AdvReac Type Severity Reaction Status Date / Time amoxicillin Allergy Unknown Hives Verified 08/05/19 07:55 Consultations 08/05/19 15:00 Consult Case Management - Discharge Planning Routine Consult Hospitalist Routine Procedures Performed Operation Date: 08/05/19 09:35 Actual Procedures p L2-L3, L3-L4 Decompression, T12 to S1 Fusion, L3-L4 Interbody Fusion, Spinal Cord Monitoring(Not Applicable) - Viet Cooper DO Ordered Studies 08/05/19 06:54 US guide vascular access Stat 08/05/19 09:35 FL fluoroscopy <1hr Routine FL lumbar spine 2-3V Routine Hospital Course (1) Neurogenic claudication due to lumbar spinal stenosis: Patient went lumbar decompression fusion tolerated as well as taken to the orthopedic floor postoperatively. Postop day 1 she was up ambulating progressed appropriately through postop day #2 on postop day 3 MATTHEW drainage decreased appropriately. Excellent strength testing. Was comfortable. Subsequently discharged home. Discharge orders and instructions from the chart for further review. Total Time Total Time Spent Total Time Spent (In Minutes): 20 minutes Discharge Plan Discharge Items Patient Disposition: Home - Self-Care Reason For Visit: Other Intervetrebal Disc Degeneration, Lumbar Discharge Diagnosis: Lumbar spinal stenosis with neurogenic claudication Activity: As commented below Non-emergency contact: Primary Care Provider Call non-emergency contact if: you have any medication questions Follow-up/Referrals: Ko Hunter [Primary Care Provider] - Diet: Regular Addtl Attending Provider Instructions: ACTIVITY RECOMMENDATIONS: SELF CARE INSTRUCTIONS AFTER THORACIC/LUMBAR FUSIONS 1. You may walk to your tolerance. It is good exercise for your legs and back. Expect some back and intermittent leg aches and pains. 2. You may perform "counter-top" level activities (make a sandwich, lucian with a project, etc.). 3. No bending or lifting of more than 10 pounds or back twisting of any nature (roll like a log when turning in bed). 4. You may ride in a car for 20-30 minutes at a time. No driving until after your first visit with your doctor. 5. Frequent changes of position and restricting sitting to 30 minutes at a time will help limit the amount of back spasms and stiffness you may experience. 6. You may discontinue the use of ambulatory aids (cane, crutches, etc.) once your strength and confidence allow. 7. You may risk management intern the shower and let water strike your incision when you arrive home at least once daily. Do not take a tub bath, sit in a hot tub or go into a swimming pool until after your first recheck in the office. SPECIAL CARE INSTRUCTIONS: VERY IMPORTANT TO READ AND REVIEW A. Your surgical incision has been closed with a cosmetic suture under the skin that will dissolve in about 6 weeks. In 14 days, you can use a pair of clean scissors and cut the suture that is left outside of the skin at the ends of your incision. 1. The small skin tapes can be removed 7 days after surgery if they have not fallen off by that point. 2. You may keep the wound open to air as much as possible to promote healing after post-op day number 5 unless told otherwise by your doctor. 3. If you think the wound looks like it is becoming infected (redness or worsening drainage) and/or you are experiencing fever, chill or worsening back pain and muscle spasms, contact the office so that we may evaluate you as soon as possible. B. Complications are uncommon, but please contact us if you have any signs or symptoms of: 1. wound infection (fever higher than 102.5 degrees F, redness, separation of wound, drainage, or increasing pain from the incision) 2. blood clots in legs (pain, swelling, redness and warmth in legs) 3. urinary tract infection (fever higher than 102.5 degrees F, burning upon urination or increased frequency of urination) 4. nerve problems (inability to walk on your toes or heels, numbness, loss of bowel or bladder control) 5. any other symptoms that concern you C. Please call the office at if you have any concerns or q uestions about your operation or recovery. D. No smoking! Smoking drastically decreases the chance of a solid fusion. E. Do not take any anti-inflammatory medications (Indocin, Advil, Motrin, Aspirin, Naprosyn, etc.) as these may inhibit the chance of a solid fusion. Tylenol is okay to take for pain. MANAGING PAIN AFTER SPINAL SURGERY 1. Narcotic medication is intended for short-term use and will be provided for surgical pain. Surgical pain usually lasts for a period of 4-6 weeks. Narcotic medication includes Percocet, Vicodin, Darvocet, Tylenol #3 or Lortab. 2. Longer-term pain is more appropriately treated with non-narcotic medication such as Tylenol ES. 3. Muscle spasm is not appropriately treated with narcotics. Muscle relaxers such as Soma, Flexeril or Skelaxin can be used along with Tylenol ES. 4. Remember that we all live with some "aches and pains". This is not unusual or uncommon after an injury or as we get older. a. Back pain is expected and may include muscle spasms for 4 to 6 weeks after surgery. The pain should gradually improve. If the pain worsens for no apparent reason, please contact the office. b. Intermittent leg pain may also be experienced and should not be concerned about unless it worsens for no apparent reason. If so, please contact the office. 5. We will provide appropriate medication within the normal guidelines of their prescribed use. We will also be very cautious and aware of potential abuse and extended duration of patients' medication needs. a. Pain medications are for your comfort and to assist with sleep and rest so that the tissue can heal. They are not provided in order to return to normal activity and should not be used through the day. To do so or worsening pain at night can result from ongoing tissue damage and development of tolerance to the prescribed medicine. 6. Please allow 2-3 days to process refills. Prescriptions will not be mailed but must be picked up at the office. FOLLOW UP VISIT: Keep your scheduled follow-up appointment. Any questions, please call the office at . Pending Studies at Discharge: No Stand-Alone Forms: [employer], Smoking Cessation Medications and DC Order Prescriptions: New oxycodone 5 mg tablet 5 mg PO Q6H PRN (Reason: pain, severe) Qty: 30 RF: 0 tramadol 50 mg tablet 50 mg PO Q6H PRN (Reason: pain, moderate) Qty: 30 RF: 0 Continued carvedilol [Coreg] 6.25 mg Tablet 6.25 mg PO BID RF: 0 aspirin 325 mg Tablet 325 mg PO QAM RF: 0 tramadol 50 mg Tablet 50 mg PO TID PRN (Reason: Pain) RF: 0 levothyroxine 75 mcg Tablet 75 mcg PO QAM RF: 0 simvastatin 20 mg Tablet 20 mg PO PM RF: 0 losartan 100 mg Tablet 100 mg PO QAM RF: 0 sertraline 50 mg Tablet 50 mg PO QPM RF: 0 Discontinued ibuprofen 200 mg Tablet 1,200 mg PO Q6H PRN (Reason: Pain) RF: 0 Discharge Orders: Discharge Order (Routine); Ordered 08/08/19 Ordered By: Viet Cooper Admission Data Admit Date/Time: 08/05/19 13:17 Attending Provider: Viet Cooper Admit Provider: Viet Cooper Primary Care Provider: Ko Hunter Other Providers: Alec Salmeron
== END 2019-08-08 13:31 | disposition home or self-care (01) | DRG 454 ==
LOC: ASU 07:36 → 3E 13:17

== ENCOUNTER 2022-03-28 08:25 | Inpatient (IN) ==
--- NOTE | 2022-03-03 10:26 | PAT Medication Instructions ---
Medication Instructions Date of Service March 03, 2022 Home Medications carvedilol 6.25 mg tablet (Coreg) 6.25 mg PO BID levothyroxine 75 mcg tablet 75 mcg PO QAM losartan 100 mg tablet 100 mg PO QAM tramadol 50 mg tablet 50 mg PO TID PRN Pain aspirin 81 mg capsule 81 mg PO QAM clopidogrel 75 mg tablet (Plavix) 75 mg PO QAM multivitamin 1 tab PO QAM polyethylene glycol 3350 17 gram/dose oral powder (Miralax) 17 g PO QAM PRN Constipation rosuvastatin 20 mg tablet 20 mg PO HS trazodone 100 mg tablet 100 mg PO HS ASK your prescriber and surgeon aspirin 81 mg capsule 81 mg PO QAM clopidogrel 75 mg tablet (Plavix) 75 mg PO QAM DO NOT take the morning of surgery losartan 100 mg tablet 100 mg PO QAM multivitamin 1 tab PO QAM polyethylene glycol 3350 17 gram/dose oral powder (Miralax) 17 g PO QAM PRN Constipation Take morning of surgery With a small sip of water, OTHERWISE NOTHING TO EAT OR DRINK AFTER MIDNIGHT: carvedilol 6.25 mg tablet (Coreg) 6.25 mg PO BID levothyroxine 75 mcg tablet 75 mcg PO QAM tramadol 50 mg tablet 50 mg PO TID PRN Pain (if needed) Take evening before surgery carvedilol 6.25 mg tablet (Coreg) 6.25 mg PO BID tramadol 50 mg tablet 50 mg PO TID PRN Pain (if needed) rosuvastatin 20 mg tablet 20 mg PO HS trazodone 100 mg tablet 100 mg PO HS Other Notes If you have any questions please call us at [phone] or [phone] or [phone] or [phone]
--- NOTE | 2022-03-07 13:54 | Anesthesiology Consultation ---
Date of Service March 07, 2022 Assessment & Plan (1) Encounter for pre-operative examination: - Awaiting surgeon-ordered stress test (scheduled 03/08; Dr. Leblanc's office/[facility]) . - Elevated creatinine: Pt did not report known hx of CKD. Note written to PCP. Awaiting response regarding elevated creatinine (Dr. Ko Hunter). - Positive antibodies: Marcial at blood bank aware. Nothing further needed from PAT per blood bank besides knowledge that very difficult to match compatible blood. Kiera at surgeon's office aware/will send message to make Dr. Leblanc aware (she was advised that he could contact me back personally with any additional questions). - COVID screening: Per assessment on 03/07: No known COVID-19 positive contacts or current COVID-19 related symptoms. Travel screen negative. At surgeon discretion if preop Covid testing being done. Chart Review Chart Review: Patient seen in Pre Admission Testing Teaching & Discussion Pre-Anesthesia Teaching/Discussion Notes: Instructed NPO after midnight before surgery,except medications with 15 cc of water. Medication instructions provided according to the PAT guidelines. History Surgery Operation Date: 03/28/22 10:50 Proposed Procedures p Right Transcarotid Revascularization - Babar Leblanc MD Height/Weight Height: 5 ft 7 in Weight: 82 kg Allergies Allergy/AdvReac Type Severity Reaction Status Date / Time amlodipine [From [facility]] Allergy Intermediate Hives Unverified 03/02/22 08:07 amoxicillin Allergy Intermediate Hives Verified 03/02/22 08:07 Medications Home Medications Medication Instructions Recorded Confirmed Last Taken carvedilol 6.25 mg tablet (Coreg) 6.25 mg PO BID 06/09/19 03/02/22 08/15/19 levothyroxine 75 mcg tablet 75 mcg PO QAM 06/09/19 03/02/22 08/15/19 losartan 100 mg tablet 100 mg PO QAM 06/09/19 03/02/22 08/15/19 tramadol 50 mg tablet 50 mg PO TID PRN Pain 06/09/19 03/02/22 08/15/19 aspirin 81 mg capsule 81 mg PO QAM 03/02/22 03/02/22 Unknown clopidogrel 75 mg tablet (Plavix) 75 mg PO QAM 03/02/22 03/02/22 Unknown multivitamin 1 tab PO QAM 03/02/22 03/02/22 Unknown polyethylene glycol 3350 17 17 g PO QAM PRN Constipation 03/02/22 03/02/22 Unknown gram/dose oral powder (Miralax) rosuvastatin 20 mg tablet 20 mg PO HS 03/02/22 03/02/22 Unknown trazodone 100 mg tablet 100 mg PO HS 03/02/22 03/02/22 Unknown Past Medical History Medical History Arthritis CAD (coronary artery disease) Stents and approximately Carotid artery stenosis Atherosclerotic disease with hemodynamically significant stenosis of the right internal carotid artery per 01/16/22 Neck CTA Chronic back pain Degenerative disc disease History of COVID-19 Dx 06/2021 Symptoms at time: cold/flu like symptoms > resolved Hyperlipidemia Hypertension Hypothyroidism Myocardial Infarction Approximately 2008 Osteoarthritis Peripheral neuropathy Spinal stenosis Exercise / Class Metabolic Activity III < 4 Walking/Shop/Light housework (one FS (no CP, no SOB) but activity limited related howard/knee isues) Past Family History Family History Aunt FHx: breast cancer Other No family history of adverse response to anesthesia Denies family history of Diabetes Past Surgical History Surgical History H/O heart artery stent Stents and approximately H/O lithotripsy laser lithotripsy with stent insertion and removal History of colonoscopy History of hysterectomy KENNY with BSO Hx of cardiac cath x3 total, most recent approximately 2013 Hx of meniscectomy of right knee X2 S/P epidural steroid injection S/P lumbar fusion L1-S1 decompression, T12-S1 fusion (08/05/19): Grade 1 view, MAC#3, ETT 7.5 at [facility]. No issues noted per post-op anesthesia progress note. Past Anesthesia History No Hx of Anesthesia Complications and No Family Hx of Anesthesia Complications History of PONV No Hx of PONV and No Hx of Motion Sickness Social History Smoking Status: Current some day smoker tobacco type: cigarettes Smoking cigarettes per day: 4-5 cigs/day (hx 1 PPD) Do You Dip or Chew Tobacco: No Hx Alcohol Use: No Hx Substance Use: No Review of Systems Patient denies chest pain, shortness of breath, fever, chills, cough, wheezing, palpitations. Physical Exam Vital Signs VITALS BP 107/63 P 69 TEMP 98.7 SP02 95%RA RESP 16 PHYSICAL Full cervical extension range of motion. Full TMJ range of motion. TMD 3 finger breaths Mallampati Score 3 Dentition: full upper/lower dentures Lungs: clear throughout to auscultation Cardiac: regular rate and rhythm, no murmurs noted Spine: kyphosis Carotid arteries: negative bruit Extremities: no edema Lab Results Anesthesia Preop Results Results Anesthesia Widget: WBC 8.58 K/ul (4.8-10.8) 03/07/22 Hgb 12.2 g/dl (12.0-16.0) 03/07/22 Hct 35.9 % (34.1-44.9) 03/07/22 Plt 209 K/uL (130-400) 03/07/22 Na 139 mmol/L (136-145) 03/07/22 K 4.1 mmol/L (3.5-5.1) 03/07/22 Cl 105 mmol/L (98-107) 03/07/22 CO2 28 mmol/L (21-32) 03/07/22 BUN 26 mg/dl (6-23) H 03/07/22 Creat 1.59 mg/dl (0.6-1.2) H 03/07/22 Glucose Level 86 mg/dl (70-99(Fasting)) 03/07/22 PT 11.0 Seconds (9.0-12.0) 03/07/22 PTT 28.8 Seconds (21.0-31.0) 03/07/22 INR 1.0 (0.9-1.1) 03/07/22 Blood Type O Positive 03/07/22 Antibody Screen POSITIVE A 03/07/22 Testing Electrocardiogram Date: 03/07/22 NSR at 61bpm. NS TWA. Chest X-Ray Date: 03/07/22 FINDINGS: PA and lateral chest radiographs are compared to chest x-ray and chest CT dated 08/16/2019. The cardiomediastinal silhouette is unremarkable noting atherosclerotic calcification of the thoracic aorta. The lungs and pleural spaces are clear noting bibasilar scarring/atelectasis. There is no pneumothorax. The skeletal structures are osteopenic. The bony thorax appears intact. Fusion hardware is noted in the upper lumbar spine. There is hyperkyphosis of the spine. IMPRESSION: No active disease in the chest. Stress Test Date: 07/03/19 Type: nuclear Negative for ischemia and infarct on SPECT imaging. LVEF 65%. Probability of CAD: low. This is a normal regadenoson SPECT myocardial perfusion study. Other Testing Neck CTA (01/16/22) CTA Neck: A 3 vessel aortic arch is shown. Atherosclerotic plaque is present in the aortic arch and at the origin of the great vessels. Prominent atherosclerotic disease is seen in the right greater than left carotid bulbs. There is hemodynamically significant stenosis of the right internal carotid artery. Left internal carotid artery demonstrates stenosis which is likely not hemodynamically significant. Prominent intracranial carotid calcifications are noted. The left vertebral artery is dominant. IMPRESSION: Atherosclerotic disease with hemodynamically significant stenosis of the right internal carotid artery. Thyromegaly. COVID-19 Risk Screen Screening Information COVID-19 Screen Date: 03/07/22 Exposure 21 Days Family/Household +COVID Last 21 Days: No Exposure 10 Days Any COVID Exposure Last 10 Days: No Symptoms Last 10 Days Experienced COVID Sx Last 10 Days: No + COVID 0-90 Days COVID + in Last 0-90 Days: No
--- NOTE | 2022-03-27 12:06 | History & Physical Report ---
Date of Service March 27, 2022 Assessment & Plan (1) Stenosis of right carotid artery: Plan: Patient admitted for a right TCAR of her carotid. I have discussed the risks options and benefits of the procedure with the patient. The patient understands the risks options and benefits and agrees to the procedure. History of Present Illness Primary Care Provider: Ko Marks is a 66-year-old female who we requested a CT angiogram of her carotid arteries due to an ultrasound which showed a 85 to 90% narrowing of her right internal carotid artery. She is asymptomatic from this lesion at this point. Her CT angiogram shows a 90% narrowing of her right internal carotid artery. There is approximately 50% to 60% narrowing of the left internal carotid artery. Allergies Allergy/AdvReac Type Severity Reaction Status Date / Time amlodipine [From [facility]] Allergy Intermediate Hives Unverified 03/02/22 08:07 amoxicillin Allergy Intermediate Hives Verified 03/02/22 08:07 Home Medications Medication Instructions Recorded Confirmed Type carvedilol 6.25 mg tablet (Coreg) 6.25 mg PO BID 06/09/19 03/02/22 History levothyroxine 75 mcg tablet 75 mcg PO QAM 06/09/19 03/02/22 History losartan 100 mg tablet 100 mg PO QAM 06/09/19 03/02/22 History tramadol 50 mg tablet 50 mg PO TID PRN Pain 06/09/19 03/02/22 History aspirin 81 mg capsule 81 mg PO QAM 03/02/22 03/02/22 History clopidogrel 75 mg tablet (Plavix) 75 mg PO QAM 03/02/22 03/02/22 History multivitamin 1 tab PO QAM 03/02/22 03/02/22 History polyethylene glycol 3350 17 17 g PO QAM PRN Constipation 03/02/22 03/02/22 History gram/dose oral powder (Miralax) rosuvastatin 20 mg tablet 20 mg PO HS 03/02/22 03/02/22 History trazodone 100 mg tablet 100 mg PO HS 03/02/22 03/02/22 History Past Med/Surg History Medical History Arthritis CAD (coronary artery disease) Stents and approximately Carotid artery stenosis Atherosclerotic disease with hemodynamically significant stenosis of the right internal carotid artery per 01/16/22 Neck CTA Chronic back pain Degenerative disc disease History of COVID-19 Dx 06/2021 Symptoms at time: cold/flu like symptoms > resolved Hyperlipidemia Hypertension Hypothyroidism Myocardial Infarction Approximately 2008 Osteoarthritis Peripheral neuropathy Spinal stenosis Surgical History H/O heart artery stent Stents and approximately H/O lithotripsy laser lithotripsy with stent insertion and removal History of colonoscopy History of hysterectomy KENNY with BSO Hx of cardiac cath x3 total, most recent approximately 2013 Hx of meniscectomy of right knee X2 S/P epidural steroid injection S/P lumbar fusion L1-S1 decompression, T12-S1 fusion (08/05/19): Grade 1 view, MAC#3, ETT 7.5 at [facility]. No issues noted per post-op anesthesia progress note. Family History Aunt FHx: breast cancer Other No family history of adverse response to anesthesia Denies family history of Diabetes Social History Smoking Status: Current some day smoker Tobacco Type: Cigarettes Cigarettes Per Day: 4-5 cigs/day (hx 1 PPD); Second Hand Exposure: No; Hx Alcohol Use: No Hx Substance Use: No Preferred Language: Malagasy Communication Ability: Effective Public Works Director Required: No Beliefs That Will Affect Care: None Current Living Situation: Significant Other Feels Safe at Home: Yes Assistive Devices: Cane, Denture - Upper and Denture - Lower Review of Systems All systems reviewed & are unremarkable except as noted in HPI & below Physical Exam Physical Exam: Constitutional: In general patient is a healthy-appearing well- nourished well-developed middle-aged female in no distress. She has no focal neurological deficits her carotids do not demonstrate a bruit. Her heart is regular, her lungs are decreased but clear. Her right radial pulse is +1, her left is +3. Lower extremity distal pulses are nonpalpable.
[~2022-03-28 08:25] MED LIST changes: -ALBUMIN HUMAN 5% 12.5 GM/250 ML VIAL IV ONE; -CEFAZOLIN 2000MG 2,000 MG/15 ML SYR IV SCH; -CLINDAMYCIN 600 MG/54 ML BAG IV SCH; +CLINDAMYCIN/D5W 600 MG/54 ML BAG IV SCH; -GABAPENTIN 600 MG DOSE PO SCH; +LACTATED RINGER'S 1,000 ML IV SCH; -LR 15ML/HR IV SCH; +SUGAMMADEX SODIUM 200 MG/2 ML VIAL IV ONE
[2022-03-28] MEDS ORDERED: MIDAZOLAM HCL 1 MG/ML 2ML VIAL ONE (09:25)
[2022-03-28] MEDS ORDERED: CLOPIDOGREL BISULFATE 75 MG TAB PO ONE (09:43)
[2022-03-28] MEDS ORDERED: ASPIRIN 81 MG CHEW PO STA (09:43)
[2022-03-28] MEDS ORDERED: ATROPINE SULFATE 0.1 MG/ML 10ML SYR IV PRN (09:49)
[2022-03-28] MEDS ORDERED: ePHEDrine sulfate 50 MG/ML AMP IV PRN (09:49)
[2022-03-28] MEDS ORDERED: ONDANSETRON INJ 2 MG/ML 2 ML VIAL IV PRN (09:49)
[2022-03-28] MEDS ORDERED: fentaNYL citrate 100 MCG/2 ML VIAL IV PRN (09:49)
[2022-03-28] MEDS ORDERED: HYDROmorphone INJ 2 MG/ML SYR/VIAL IV PRN (09:49)
--- NOTE | 2022-03-28 09:55 | History & Physical Bridge Note ---
Date of Service March 28, 2022 History & Physical Bridge Note I have examined the patient, reviewed the History & Physical and in the interval since the performance of the History & Physical I have noted the following changes of clinical significance: no changes noted
[2022-03-28] MEDS ORDERED: PHENYLEPHRINE HCL 10 MG/ML VIAL ONE (10:14)
[2022-03-28] MEDS ORDERED: DEXAMETHASONE SOD INJ 4 MG/ML VIAL ONE (10:14)
[2022-03-28] MEDS ORDERED: PROPOFOL IV EMULSION 10 MG/ML 20 ML VIAL IV ONE (10:14)
[2022-03-28] MEDS ORDERED: LIDOCAINE 2% MPF LOCAL 5 ML VIAL INFIL ONE (10:14)
[2022-03-28] MEDS ORDERED: ONDANSETRON INJ 2 MG/ML 2 ML VIAL ONE (10:14)
[2022-03-28] MEDS ORDERED: GLYCOPYRROLATE 0.2 MG/ML VIAL ONE (10:14)
[2022-03-28] MEDS ORDERED: ROCURONIUM BROMIDE 10 MG/ML 5 ML VIAL IV ONE (10:14)
[2022-03-28] MEDS ORDERED: fentaNYL citrate 100 MCG/2 ML VIAL ONE (10:15)
[2022-03-28] MEDS ORDERED: GELATIN SPONGE SZ 100 ONE (10:15)
[2022-03-28] MEDS ORDERED: VISIPAQUE IV ONE (12:03)
[2022-03-28] MEDS ORDERED: THROMBIN 5000 UNITS KIT TOP ONE (12:07)
[2022-03-28] MEDS ORDERED: ATROPINE SULFATE 1MG/2.5ML SYR ONE (12:09)
[2022-03-28] MEDS ORDERED: HEPARIN SOD (PORCINE) 1000 UNIT/ML ONE (12:13)
[2022-03-28] MEDS ORDERED: ESMOLOL HCL INJ 10 MG/ML 10ML VIAL IV ONE (12:16)
--- NOTE | 2022-03-28 12:22 | Operative Report ---
Post Operative Report Pre & Post Diagnosis Operation Date: 03/28/22 10:30 Pre-Op Diagnosis: (1) Stenosis of right carotid artery Post-Op Diagnosis: (1) Stenosis of right carotid artery I identified the patient and participated in the time-out.: Yes Procedure Operation Date: 03/28/22 10:30 Actual Procedures p Right Transcarotid Artery Revascularization(Right), ultrasound localization of the left femoral vein - Babar Leblanc MD Surgeon Babar Leblanc MD Communications Coordinator Jordy,PAC Estimated Blood Loss 20 Findings Consistent with Post-Op Diagnosis Specimens none Anesthesia Type General Complications none Disposition Accompanied Patient To Recovery: No Disposition: Recovery Room Indications This is a 66yo female with severe stenosis of the right internal carotid artery. Tcar vs endarterectomy was recommended. She elected for a tcar procedure. I have discussed the risks options and benefits of the procedure with the patient. The patient understands the risks options and benefits and agrees to the procedure. Description of Procedure The patient was taken to the operating room and placed in supine position. After general anesthesia was accomplished the groins and right side of the neck and chest were prepped and draped in a sterile manner. Timeout was performed and the patient was identified. A transverse incision was made just above the clavicle between the heads of the sternocleidomastoid. This was carried down to where the common carotid artery was identified. It was isolated and slung with an umbilical tape. It was given 8000units of heparin at that time. Ultrasound was then used to localize the left common femoral vein. The vein was patent and compressed easily. Under ultrasound guidance the left common femoral vein was punctured and the venous sheath was inserted. This was aspirated and flushed with heparinized saline. An ACT at that time was 3120. Using micropuncture technique the common carotid artery was punctured. The micro sheath was inserted to 3 cm. Injection was then done showing the bifurcation. There was a significant lesion seen at the origin of the internal carotid artery on the right side. We then inserted the J-wire and keep it short of the bifurcation of the carotid artery. The TCAR sheath was inserted. Once it was in place and held against the artery it was sutured to the chest wall and the incision edge. We then flushed the tubing appropriately. The venous return tubing was clamped onto the TCAR sheath. It was flushed through and then attached to the venous inflow sheath in the left groin. The sheath was checked for flow. We then inserted a 5.5 x 3 balloon backloaded on the wire. The wire was passed through the lesion into the petrous portion of the internal carotid. The 5.5 balloon was then advanced to the lesion. The lesion was then predilated with the 5.5 mm balloon. The balloon was removed. We then inserted the 9 x 30 stent. This was deployed across the lesion without difficulty. The catheter was removed. The carotid was allowed to go 2 minutes with flow reversal. Completion angiogram was done at that time which showed a mild residual stenosis. We post ballooned the stent with the 5.5 x 3 balloon with good results. Again after the angio was done and the wire was removed we allowed 2 minutes of flow reversal to occur. A that point the common carotid artery was unclamped. The venous return tubing was clamped and removed from the TCAR sheath. The blood was allowed to flow back into the venous system. Once this was completed the sheath was pulled from the groin and pressure was applied. The TCAR sheath was then removed and the 5- 0 Prolene suture securely tied. Hemostasis was noted of the puncture site. Wound was irrigated with Ancef solution. Adequate hemostasis was obtained of the wound. Once this was noted the wound was closed in usual fashion using a 3- 0 Vicryl suture for the subcutaneous layer and a 4-0 subcuticular Vicryl suture for the skin edges. Dermabond was used for dressing.The patient left the operation room in satisfactory condition and tolerated the procedure well. All needle and sponge counts were correct at the end of the procedure Zoë Tate Pac assisted due to lack of resident availability and was necessary for positioning, draping, retraction, wound closure deep layers, sub cutaneous tissue, and skin closure and was necessary for assisting with the case. I attest to the content of the Intraoperative Record and any orders documented therein. Any exceptions are noted below.
[2022-03-28] MEDS ORDERED: PHENYLEPHRINE 100MCG/ML 5ML SYR ONE (13:06)
[2022-03-28] MEDS ORDERED: STAT IV Infusion **Titration per Protocol STA (13:08)
[2022-03-28] MEDS: PHENYLEPHRINE HCL 20 MG in DEXTROSE 5% 500 ML IV SCH (13:19)
--- NOTE | 2022-03-28 13:46 | Anesthesia Procedure Note ---
Anesthesia Procedure Note Arterial Line Note Patient medical history, medications, allergies and vitals reviewed. Consent: Risk / Benefits Reviewed With: PT / POA / Parent / Guardian, Accepts Plan, Informed Consent Obtained and All Questions Answered Monitors attached: Blood Pressure, CO2, EKG and Pulse Oximetry Time out completed: Yes Premedication: Midazolam (mg) (2) Laterality: Right Location: Brachial Hand hygeine: Soap and water and Alcohol based hand rub Equipment/Supplies: Cap, Mask, Sterile gown, Sterile gloves, Sterile drapes and Sterile procedures used Skin prep: Chloraprep Local medication: 1% Lidocaine (ml) Ultrasound used: Yes US equipment and supplies: Sterile Gel and Sterile Probe Cover Orsalio test: Negative (return of flow) Attempts: Multiple Procedure Summary: 20 gauge angiocath advanced until return of bright red blood. Catheter threaded using seldinger technique with return of pulsatile, bright red blood. Catheter secured with tape and covered with occlusive dressing. Waveform consistent with correct arterial placement. After placement, normal perfusion was observed distal to the site of catheter placement. procedure completed prior to OR. late entry Post-Procedure: Pt hemodynamically stable, Pt tolerates well and No complication
--- NOTE | 2022-03-28 13:53 | Anesthesiology Progress Note ---
Date of Service March 28, 2022 Anesthesia Post Procedure Vital Signs Vital Signs: Temp Pulse Pulse Resp BP BP Pulse Ox 03/28/22 13:45 36.6 C 56 L 16 144/59 H 111/59 L 100 03/28/22 13:35 60 16 109/42 L 82/52 L 100 03/28/22 13:25 66 16 98/41 L 78/49 L 95 03/28/22 13:15 63 14 134/49 L 95/58 L 100 03/28/22 13:05 62 19 96/40 L 64/45 L 100 03/28/22 12:55 64 16 87/34 L 70/44 L 100 03/28/22 12:45 64 14 107/40 L 76/49 L 100 03/28/22 12:39 36.2 C L 68 18 122/49 L 100 03/28/22 08:55 03/28/22 08:55 36.8 C 72 16 152/72 H 104/58 L 98 O2 Del Method O2 Flow Rate 03/28/22 13:45 Nasal Cannula 2 03/28/22 13:35 Nasal Cannula 3 03/28/22 13:25 Nasal Cannula 2 03/28/22 13:15 Nasal Cannula 2 03/28/22 13:05 Oxymask 4 03/28/22 12:55 Oxymask 4 03/28/22 12:45 Oxymask 4 03/28/22 12:39 Oxymask 6 03/28/22 08:55 Room Air 03/28/22 08:55 Room Air Pain Intensity Bilateral Lower Back: Pain Intensity: 7 Transfer of Care Handoff Completed per policy Notes Mental Status: alert / awake / arousable and participated in evaluation Patient Amnestic to Procedure: Yes Nausea / Vomiting: adequately controlled Pain: adequately controlled Airway Patency, RR, SpO2: stable & adequate BP & HR: stable & adequate Hydration State: stable & adequate Anesthetic Complications: no major complications apparent and Pt Satisfied with anesthetic care
[2022-03-28] MEDS ORDERED: POLYETHYLENE (MIRALAX) 17 GM PACK PO PRN (14:04)
[2022-03-28] MEDS: LACTATED RINGER'S 1,000 ML IV SCH ×2 (14:32→22:52)
--- NOTE | 2022-03-28 14:49 | Critical Care Consultation ---
Date of Consultation March 28, 2022 Assessment & Plan (1) Stenosis of right carotid artery: Patient is status post TCAR currently mildly hypotensive and bradycardic on phenylephrine infusion per vascular surgery recommendations. Continue dual antiplatelet therapy and statin therapy. Monitor for signs of bleeding. Continue frequent neurovascular checks and evaluation of the airway. (2) Hypertension: BP parameters per vascular surgery. Currently on phenylephrine drip with art erial line in place. (3) CAD (coronary artery disease): Patient followed by outpatient cardiology with known prior infarct. Currently on dual antiplatelet therapy. (4) Weakness of right hand: Patient has 3 out of 5 right bus cleaner strength, numbness and tingling of the right hand. She was having phenylephrine infusing through an IV in her wrist which has since been discontinued. The IV site looks intact. The nailbeds and fingers do not appear dusky. There is good capillary refill. Nursing informed Dr. Leblanc who said to continue with frequent neurovascular checks. Low threshold for CT head to evaluate for stroke. History of Present Illness Reason for Consultation: Status post right TCAR Attending Physician: Babar Leblanc MD History of Present Illness 66-year-old female with a past medical history of right subclavian vein stenosis, lumbar stenosis, tobacco abuse, coronary artery disease and carotid artery stenosis presenting for an elective TCAR. She is continued numbness and tingling in her right hand. She notes that she has chronic numbness in her right thumb and first digit, but it is worse than usual. She was hypotensive postoperatively and is currently on a low-dose phenylephrine drip. Left brachial arterial line in place. Allergies Allergy/AdvReac Type Severity Reaction Status Date / Time amlodipine [From [facility]] Allergy Intermediate Hives Verified 03/28/22 08:50 amoxicillin Allergy Intermediate Hives Verified 03/28/22 08:50 Home Medications Medication Instructions Recorded Confirmed Type carvedilol 6.25 mg tablet (Coreg) 6.25 mg PO BID 06/09/19 03/28/22 History levothyroxine 75 mcg tablet 75 mcg PO QAM 06/09/19 03/28/22 History losartan 100 mg tablet 100 mg PO QAM 06/09/19 03/28/22 History tramadol 50 mg tablet 50 mg PO TID PRN Pain 06/09/19 03/28/22 History aspirin 81 mg capsule 81 mg PO QAM 03/02/22 03/28/22 History clopidogrel 75 mg tablet (Plavix) 75 mg PO QAM 03/02/22 03/28/22 History multivitamin 1 tab PO QAM 03/02/22 03/28/22 History polyethylene glycol 3350 17 17 g PO QAM PRN Constipation 03/02/22 03/28/22 History gram/dose oral powder (Miralax) rosuvastatin 20 mg tablet 20 mg PO HS 03/02/22 03/28/22 History trazodone 100 mg tablet 100 mg PO HS 03/02/22 03/28/22 History Patient History Medical History (Updated 03/28/22 @ 15:09 by Rohith Aguilar MD) Arthritis CAD (coronary artery disease) Stents and approximately Carotid artery stenosis Atherosclerotic disease with hemodynamically significant stenosis of the right internal carotid artery per 01/16/22 Neck CTA Chronic back pain Degenerative disc disease History of COVID-19 Dx 06/2021 Symptoms at time: cold/flu like symptoms > resolved Hyperlipidemia Hypertension Hypothyroidism Myocardial Infarction Approximately 2008 Osteoarthritis Peripheral neuropathy Spinal stenosis Weakness of right hand Surgical History H/O heart artery stent Stents and approximately H/O lithotripsy laser lithotripsy with stent insertion and removal History of colonoscopy History of hysterectomy KENNY with BSO Hx of cardiac cath x3 total, most recent approximately 2013 Hx of meniscectomy of right knee X2 S/P epidural steroid injection S/P lumbar fusion L1-S1 decompression, T12-S1 fusion (08/05/19): Grade 1 view, MAC#3, ETT 7.5 at [facility]. No issues noted per post-op anesthesia progress note. Family History Aunt FHx: breast cancer Other No family history of adverse response to anesthesia Denies family history of Diabetes Social History Smoking Status: Former smoker Tobacco Type: Cigarettes Cigarettes Per Day: Attempting to quit, smoking ~1 pack per month; Second Hand Exposure: No; Do You Dip or Chew Tobacco: No; Tobacco Cessation Education Requested by Patient: No Hx Alcohol Use: No Hx Substance Use: No Preferred Language: Argentine Communication Ability: Effective Back Hanger Required: No Beliefs That Will Affect Care: None Current Living Situation: Significant Other Other Information That Helps Us Care for You: No Feels Safe at Home: Yes Safety Concerns: Feels Safe At This Time Assistive Devices: None Assistive Devices Comment: mihai forbes Review of Systems Review of Systems: All systems reviewed & are unremarkable except as noted in HPI & below Physical Exam Physical Exam: Constitutional: Patient appears to be of their stated age. Patient is in no apparent distress. Patient is well-developed. Eyes: Pupils are equal round and reactive to light. Conjunctivae are normal. Anicteric sclera. Ears nose, mouth and throat: Deferred. Neck: Bandaging noted on the neck. Respiratory: Clear to auscultation bilaterally. No use of accessory muscles. No significant clubbing noted. Cardiovascular: Regular rate and rhythm. No murmurs. No edema. Gastrointestinal: Normal bowel sounds, soft, nontender and nondistended. No hepatosplenomegaly noted. Musculoskeletal: No cyanosis. Patient is able to move all extremities. Strength is 5 out of 5 in the upper and lower extremities. Skin: No rashes, warm dry and intact. Neurologic: 3 out of 5 right bus cleaner strength. 5 out of 5 left bus cleaner strength. Psychiatric: Alert and oriented x3 with a euthymic affect. Results & Data Results & Data ([facility]) Vital Signs (Past 12 Hours) Vital Signs Temp Pulse Pulse Pulse Resp BP BP 03/28/22 14:34 57 L 16 79/49 L 03/28/22 14:23 56 L 20 80/50 L 03/28/22 13:55 58 L 17 135/47 L 03/28/22 13:45 36.6 C 56 L 16 144/59 H 03/28/22 13:35 60 16 109/42 L 03/28/22 13:25 66 16 98/41 L 03/28/22 13:15 63 14 134/49 L 03/28/22 13:05 62 19 96/40 L 03/28/22 12:55 64 16 87/34 L 03/28/22 12:45 64 14 107/40 L 03/28/22 12:39 36.2 C L 68 18 03/28/22 08:55 03/28/22 08:55 36.8 C 72 16 152/72 H BP Pulse Ox O2 Del Method O2 Flow Rate 03/28/22 14:34 03/28/22 14:23 94 03/28/22 13:55 127/73 100 Nasal Cannula 2 03/28/22 13:45 111/59 L 100 Nasal Cannula 2 03/28/22 13:35 82/52 L 100 Nasal Cannula 3 03/28/22 13:25 78/49 L 95 Nasal Cannula 2 03/28/22 13:15 95/58 L 100 Nasal Cannula 2 03/28/22 13:05 64/45 L 100 Oxymask 4 03/28/22 12:55 70/44 L 100 Oxymask 4 03/28/22 12:45 76/49 L 100 Oxymask 4 03/28/22 12:39 122/49 L 100 Oxymask 6 03/28/22 08:55 Room Air 03/28/22 08:55 104/58 L 98 Room Air Coding Level of Care Code 17803 Inpt Consult Level 5 Diagnoses Stenosis of right carotid artery I65.21 Hypertension I10 CAD (coronary artery disease) I25.10 Weakness of right hand R29.898
[2022-03-28] MEDS: traMADol HCL 50 MG TABLET PO PRN (18:21)
[2022-03-28] MEDS ORDERED: PSEUDOEPHEDRINE HCL 30 MG TAB PO PRN (19:00)
[2022-03-28] MEDS: CLINDAMYCIN/D5W 600 MG/50 ML BAG IV SCH (19:49)
[2022-03-28] MEDS: carvediloL 6.25 MG TAB PO SCH (19:50)
[2022-03-28] MEDS ORDERED: ROSUVASTATIN CALCIUM 20 MG TAB PO SCH (21:00)
[2022-03-28] MEDS ORDERED: traZODone HCL 100 MG TAB PO SCH (21:00)
[2022-03-29] MEDS: traMADol HCL 50 MG TABLET PO PRN ×2 (00:59→12:21)
[2022-03-29] MEDS: CLINDAMYCIN/D5W 600 MG/50 ML BAG IV SCH (03:08)
[2022-03-29] MEDS ORDERED: LEVOTHYROXINE SODIUM 75 MCG TABLET PO SCH (06:30)
[2022-03-29] MEDS: PHENYLEPHRINE HCL 20 MG in DEXTROSE 5% 500 ML IV SCH (07:52)
[2022-03-29] MEDS: carvediloL 6.25 MG TAB PO SCH (08:47)
[2022-03-29] MEDS: LACTATED RINGER'S 1,000 ML IV SCH ×2 (08:52→11:01)
[2022-03-29] MEDS ORDERED: MULTIVITAMIN TAB PO SCH (09:00)
[2022-03-29] MEDS ORDERED: ASPIRIN 81 MG ECTAB PO SCH (09:00)
[2022-03-29] MEDS ORDERED: CLOPIDOGREL BISULFATE 75 MG TAB PO SCH (09:00)
[2022-03-29] MEDS ORDERED: LOSARTAN POTASSIUM 50 MG TAB PO SCH (09:00)
--- NOTE | 2022-03-29 09:02 | Critical Care Progress Note ---
Date of Service March 29, 2022 Assessment & Plan (1) Bradycardia: Plan: Likely secondary to to manipulation of the carotid artery which should resolve with time. Asymptomatic. (2) Stenosis of right carotid artery: Plan: Patient is status post TCAR. Continue dual antiplatelet therapy and statin therapy. Monitor for signs of bleeding. Continue frequent neurovascular checks and evaluation of the airway. (3) Hypertension: Plan: BP parameters per vascular surgery. Phenylephrine drip is off currently. Hold antihypertensive this morning given low blood pressure. (4) CAD (coronary artery disease): Plan: Patient followed by outpatient cardiology with known prior infarct. Currently on dual antiplatelet therapy. (5) Weakness of right hand: Plan: Resolved. Admission and Anticipated Discharge Date Admission Date: March 28, 2022 Subjective Patient is stable this morning and denies any significant complaint. Bradycardic, but asymptomatic. Patient off phenylephrine since 4 AM. Following noninvasive blood pressures at this time his art line failed yesterday evening. Review of Systems Review of Systems: All systems reviewed & are unremarkable except as noted in HPI & below Physical Exam Physical Exam: Constitutional: Patient appears to be of their stated age. Patient is in no apparent distress. Patient is well-developed. Eyes: Pupils are equal round and reactive to light. Conjunctivae are normal. Anicteric sclera. Ears nose, mouth and throat: Deferred. Neck: Bandaging noted on the neck. Respiratory: Clear to auscultation bilaterally. No use of accessory muscles. No significant clubbing noted. Cardiovascular: Regular rate and rhythm. No murmurs. No edema. Gastrointestinal: Normal bowel sounds, soft, nontender and nondistended. No hepatosplenomegaly noted. Musculoskeletal: No cyanosis. Patient is able to move all extremities. Strength is 5 out of 5 in the upper and lower extremities. Skin: No rashes, warm dry and intact. Neurologic: No focal signs. Psychiatric: Alert and oriented x3 with a euthymic affect. Results & Data Results & Data ([facility]) Vital Signs (Past 12 Hours) Vital Signs Temp Pulse Resp BP Pulse Ox O2 Del Method 03/29/22 08:20 47 L 14 118/51 L 94 Room Air 03/29/22 08:01 36 L 16 123/42 L 91 Room Air 03/29/22 07:29 49 L 20 103/36 L 96 Room Air 03/29/22 07:01 41 L 17 113/44 L 97 Room Air 03/29/22 06:00 41 L 18 92/49 L 96 Room Air 03/29/22 05:30 40 L 18 119/47 L 95 Room Air 03/29/22 05:00 43 L 18 105/38 L 98 Room Air 03/29/22 04:30 44 L 14 98 Room Air 03/29/22 04:00 36.6 C 40 L 14 106/47 L 97 Room Air 03/29/22 03:30 40 L 16 97 Room Air 03/29/22 03:00 42 L 15 101/61 97 Room Air 03/29/22 02:30 44 L 17 94 Room Air 03/29/22 02:00 40 L 14 105/31 L 96 Room Air 03/29/22 01:30 42 L 15 97 Room Air 03/29/22 01:00 45 L 17 96/47 L 98 Room Air 03/29/22 00:30 42 L 15 96 Room Air 03/29/22 00:00 37 C 42 L 17 100/48 L 96 Room Air 03/28/22 23:30 40 L 17 93 Room Air 03/28/22 23:00 44 L 17 100/42 L 94 Room Air 03/28/22 22:30 42 L 17 97 Room Air 03/28/22 22:00 44 L 18 118/50 L 95 Room Air 03/28/22 21:30 42 L 17 96 Room Air Coding Level of Care Code 91753 Subseq Hosp Care Lvl 2 Diagnoses Bradycardia R00.1 Stenosis of right carotid artery I65.21 Hypertension I10 CAD (coronary artery disease) I25.10 Weakness of right hand R29.898
[2022-03-29] MEDS ORDERED: ATROPINE SULFATE 0.1 MG/ML 10ML SYR IV ONE (09:40)
[2022-03-29] MEDS ORDERED: Nursing to Pharmacy Communication SCH (11:15)
[2022-03-29] MEDS ORDERED: PSEUDOEPHEDRINE HCL 30 MG TAB PO STA (13:39)
--- NOTE | 2022-03-29 13:44 | Surgery Progress Note ---
Date of Service March 29, 2022 Assessment & Plan (1) S/P arterial stent: Plan: Pt doing well POD #1 after R ICA TCAR procedure. Noted to be bradycardic, but is asymptomatic. To follow up with cardiology as outpt. Pt also seen by Dr Sales today. Will D/C home today on oral sudafed. Will see in office in 2 weeks. (2) Stenosis of right carotid artery: Plan: See above Admission and Anticipated Discharge Date Admission Date: March 28, 2022 Subjective 66 yo f POD #1 after R TCAR, seen in f/u today. Pt states feeling well. Denies any other new complaints. Noted to be bradycardic, rate 38-42BPM. Review of Systems Review of Systems: All systems reviewed & are unremarkable except as noted in HPI & below Physical Exam Constitutional: WD/WN, vitals as above Neck: trachea midline R neck incision C/D/I, mild local edema, ecchymosis. Respiratory: normal respiratory effort, lungs clear to auscultation Auscultation: + diminished lung sounds Cardiovascular: Rate/Rhythm: regular rhythm and + bradycardic Vessels: posterior tibial pulses present, dorsalis pedis pulses present and radial pulses present; + abnormal peripheral pulses Extremities: normal capillary refill Gastrointestinal (Abdomen): Inspection/Auscultation: abdomen normal to inspection and normal bowel sounds Percussion/Palpation: abdomen soft; abdomen nontender Musculoskeletal: no cyanosis or clubbing, extremities motor strength 5/5 Skin: no rashes, warm and dry Neurologic: moves all extremities and awake; no focal motor deficits and not confused Psychiatric: A+Ox3, euthymic affect Results & Data ([facility]) Vital Signs (Past 12 Hours) Vital Signs Temp Pulse Resp BP Pulse Ox O2 Del Method 03/29/22 12:00 47 L 14 98 03/29/22 12:00 104/40 L 03/29/22 11:01 35 L 13 97 03/29/22 11:01 116/34 L 03/29/22 11:00 38 L 14 97 03/29/22 10:54 107/37 L 03/29/22 10:54 33 L 18 96 03/29/22 10:41 86/49 L 03/29/22 10:41 37 L 18 100 03/29/22 10:34 117/46 L 03/29/22 10:34 38 L 21 03/29/22 10:33 42 L 19 03/29/22 10:00 35 L 15 95 03/29/22 09:01 95/38 L 03/29/22 09:01 39 L 12 03/29/22 09:00 36 L 16 97 03/29/22 08:00 39 L 03/29/22 08:20 47 L 14 118/51 L 94 Room Air 03/29/22 08:01 36 L 16 123/42 L 91 Room Air 03/29/22 07:29 49 L 20 103/36 L 96 Room Air 03/29/22 07:01 41 L 17 113/44 L 97 Room Air 03/29/22 06:00 41 L 18 92/49 L 96 Room Air 03/29/22 05:30 40 L 18 119/47 L 95 Room Air 03/29/22 05:00 43 L 18 105/38 L 98 Room Air 03/29/22 04:30 44 L 14 98 Room Air 03/29/22 04:00 36.6 C 40 L 14 106/47 L 97 Room Air 03/29/22 03:30 40 L 16 97 Room Air 03/29/22 03:00 42 L 15 101/61 97 Room Air 03/29/22 02:30 44 L 17 94 Room Air 03/29/22 02:00 40 L 14 105/31 L 96 Room Air
--- NOTE | 2022-03-29 13:49 | Electrocardiogram Report ---
Test Reason : Blood Pressure : / mmHG Vent. Rate : 035 BPM Atrial Rate : 035 BPM P-R Int : 148 ms QRS Dur : 098 ms QT Int : 498 ms P-R-T Axes : 046 031 007 degrees QTc Int : 380 ms Marked sinus bradycardia with sinus arrhythmia Abnormal ECG When compared with ECG of 07-MAR-2022 14:35, Vent. rate has decreased BY 26 BPM Confirmed by Lai Olmedo ([id number]) on 03/29/2022 1:49:32 PM Referred By: Babar Leblanc Confirmed By:Lai Olmedo
--- NOTE | 2022-03-29 13:55 | Discharge Summary ---
Date of Service March 29, 2022 Admission HPI Per Admitting Provider Ms Marks is a 66-year-old female who we requested a CT angiogram of her carotid arteries due to an ultrasound which showed a 85 to 90% narrowing of her right internal carotid artery. She is asymptomatic from this lesion at this point. Her CT angiogram shows a 90% narrowing of her right internal carotid artery. There is approximately 50% to 60% narrowing of the left internal carotid artery. Admission Exam Per Admitting Provider Constitutional: In general patient is a healthy-appearing well-nourished well- developed middle-aged female in no distress. She has no focal neurological deficits her carotids do not demonstrate a bruit. Her heart is regular, her lungs are decreased but clear. Her right radial pulse is +1, her left is +3. Lower extremity distal pulses are nonpalpable. Principal Diagnosis 1. s/p R ICA TCAR 2. Severe R ICA stenosis Discharge Exam Constitutional WD/WN, vitals as above Neck trachea midline Respiratory normal respiratory effort, lungs clear to auscultation Auscultation: + diminished lung sounds Cardiovascular Rate/Rhythm: regular rhythm and + bradycardic Vessels: posterior tibial pulses present, dorsalis pedis pulses present and radial pulses present; + abnormal peripheral pulses Extremities: normal capillary refill Gastrointestinal (Abdomen) Inspection/Auscultation: abdomen normal to inspection and normal bowel sounds Percussion/Palpation: abdomen soft; abdomen nontender Musculoskeletal no cyanosis or clubbing, extremities motor strength 5/5 Skin no rashes, warm and dry Neurologic moves all extremities and awake; no focal motor deficits and not confused Psychiatric A+Ox3, euthymic affect Discharge Data Allergies Allergy/AdvReac Type Severity Reaction Status Date / Time amlodipine [From [facility]] Allergy Intermediate Hives Verified 03/28/22 08:50 amoxicillin Allergy Intermediate Hives Verified 03/28/22 08:50 Consultations 03/28/22 14:04 Consult Oval Or Circular Glass Cutter Routine Procedures Performed Operation Date: 03/28/22 10:30 Actual Procedures p Right Transcarotid Artery Revascularization(Right) - Babar Sales MD Ordered Studies 03/28/22 07:18 EV angio carotid external RT Routine US EV guide vascular access Routine Hospital Course (1) S/P arterial stent: Pt doing well POD #1 after R ICA TCAR procedure. Noted to be bradycardic, but is asymptomatic. To follow up with cardiology as outpt. Pt also seen by Dr Sales today. Will D/C home today on oral sudafed. Will see in office in 2 weeks. (2) Stenosis of right carotid artery: See above Total Time Total Time Spent Total Time Spent (In Minutes): 0 Discharge Plan Discharge Items Patient Disposition: Home - Self-Care Reason For Visit: Right Transcarotid Revascularization Discharge Diagnosis: 1. s/p Transcarotid Artery Revascularization 2. Severe R ICA stenosis Condition on Discharge: Good Activity: Per Instructions section Non-emergency contact: Primary Care Provider and Surgeon Call non-emergency contact if: you have any medication questions, your pain is not controlled, your pain is concerning for you, you have a fever, your wound has increased redness and your wound has increased drainage Follow-up/Referrals: Yomi Umaña DO [Physician] - (Follow up with Dr Umaña or Zarina GEE within 1 month) Ko Hunter [Primary Care Provider] - (Follow up with your PCP within 2 weeks) Babar Sales MD [Physician] - (Follow up with Dr Sales or Zoë Tate PA-C in 2 weeks) Diet: Heart Healthy Addtl Attending Provider Instructions: SPECIAL CARE INSTRUCTIONS: Medications: * Continue to take Aspirin as directed. Incision Care: * You may shower, but do not rub incision. You may let the warm soapy water run over it. Be sure to dry the incision well after bathing. * Do not shave directly over the incision until it is healed. * DO NOT IMMERSE THE INCISION IN A TUB/POOL/etc. UNTIL HEALED. Restrictions: * Do not drive for at least one week or if you are still taking any narcotic pain medication. * Do not lift anything heavier than a gallon of milk for one week after going home. Possible Complications: * Numbness - It is normal to have some numbness around the incision. Numbness can extend beyond the incision to areas of the neck, ear and face. The numbness is due to bruising of nerves during the surgery and will gradually improve over a period of months. * Hoarseness/Difficulty Speaking and Swallowing - The bruising of nerves in the neck can also cause a hoarse voice, difficulty speaking or swallowing. This may improve over time, HOWEVER, if it continues for more than a few days please contact our office ([phone]). * Excessive Swelling - There will be some swelling immediately after surgery which usually resolves within one week. If you notice that the swelling is getting worse, notify your surgeon ([phone]). * Drainage/Bleeding - If there is any drainage or bleeding, it should be a very small amount (less than a teaspoon per day). If you have excessive bleeding or drainage from the incision, call your surgeon ([phone]) right away. ACTIVATION OF EMERGENCY MEDICAL SYSTEM: Call 911, immediately, if you experience any of the following: Warning Signs and Symptoms of Stroke: * Sudden numbness or weakness of the face, arm or leg, especially on one side of the body * Sudden confusion, trouble speaking or understanding * Sudden trouble seeing in one or both eyes * Sudden trouble walking, dizziness, loss of balance or coordination * Sudden severe headache with no cause Do not delay calling 911 if you experience any warning signs or symptoms of a stroke. Delay in seeking medical attention may affect what treatments can be given to you. Risk Factors for Stroke: You can reduce your chances of stroke by working with your medical provider to adopt a healthy lifestyle. Some specific ways to lower your chance of stroke are: * If you are a smoker, now is the time to stop smoking cigarettes * If you are diabetic, improve the control of your blood sugars * Avoid excessive amounts of alcohol * Control high blood pressure * Lose weight if you are overweight * Be sure to lead an active lifestyle * Eat a healthy diet low in salt, cholesterol and fat You should know about other risk factors for stroke that you are unable to control. These include: * Age 55 years or older * Male gender * Certain racial groups: , or / * Family History of Stroke, Mini stroke or Heart Attack * Sickle Cell Disease You will be receiving a call from the Vascular Surgery Nurse after you are discharged. FOLLOW UP VISIT: It is important for you to keep your follow up appointments with your medical provider. Keep any scheduled doctor appointments. Pending Studies at Discharge: No Stand-Alone Forms: My [employer], Smoking Cessation Medications and DC Order Prescriptions: New pseudoephedrine HCl [Sudafed] 30 mg Tablet 30 mg PO Q6H Qty: 30 0RF Continued carvedilol [Coreg] 6.25 mg Tablet 6.25 mg PO BID tramadol 50 mg Tablet 50 mg PO TID PRN (Reason: Pain) levothyroxine 75 mcg Tablet 75 mcg PO QAM losartan 100 mg Tablet 100 mg PO QAM multivitamin Tablet 1 tab PO QAM trazodone 100 mg Tablet 100 mg PO HS polyethylene glycol 3350 [Miralax] 17 gram/dose Powder 17 g PO QAM PRN (Reason: Constipation) rosuvastatin 20 mg Tablet 20 mg PO HS aspirin 81 mg Capsule 81 mg PO QAM clopidogrel [Plavix] 75 mg Tablet 75 mg PO QAM Discharge Orders: Discharge Order (Routine); Ordered 03/29/22 Ordered By: Zoë Tate Admission Data Admit Date/Time: 03/28/22 09:55 Attending Provider: Babar Sales Admit Provider: Babar Sales Primary Care Provider: Ko Hunter Other Providers: Paolo Cain ; Kwan Angeles ; Oren Acevedo ; Rohith Aguilar ; Nahun Amato ; Viet Finch ; Bernadette Adams ; Osmani Nixon ; Yu García Other Interventions: Discharge Summary Assessment (RN) Last Done: 03/29/22 13:42
== END 2022-03-29 15:49 | disposition home or self-care (01) | DRG 36 ==
LOC: ASU 08:25 → 1E 09:55
PROC: EV.TCAR (2022-03-28 10:30)
DX: R00.1 Bradycardia, unspecified; Z98.1 Arthrodesis status; I10 Essential (primary) hypertension; Z88.1 Allergy status to other antibiotic agents; I25.10 Atherosclerotic heart disease of native coronary artery without angina pectoris; Z95.5 Presence of coronary angioplasty implant and graft; I65.21 Occlusion and stenosis of right carotid artery; Z86.16 Personal history of COVID-19; G62.9 Polyneuropathy, unspecified